=== PATIENT | male | born 1970 | race Caucasian/White ===

== ENCOUNTER 2017-03-31 16:48 | Emergency (ER) | payer BC ==
[2017-03-31 17:15] VITALS: BP 152/97
== END 2017-03-31 18:30 | disposition left against medical advice (07) ==
LOC: ER 16:48
DX: Z53.21 Procedure and treatment not carried out due to patient leaving prior to being seen by health care provider (principal)

== ENCOUNTER 2017-03-31 19:25 | Emergency (ER) | payer BC ==
[2017-03-31 19:39] VITALS: BP 144/100
== END 2017-03-31 21:30 | disposition left against medical advice (07) ==
LOC: ER 19:25
DX: Z53.21 Procedure and treatment not carried out due to patient leaving prior to being seen by health care provider (principal)

== ENCOUNTER 2017-04-01 21:49 | Emergency (ER) | payer BC, OTHER ==
--- NOTE | 2017-04-01 22:24 | ER Document Report ---
ED General - General Chief Complaint: High Blood Pressure Stated Complaint: POSSIBLE LOW SODIUM Time Seen by Provider: 04/01/17 22:05 Notes: Patient is a 46-year-old male who comes emergency department for chief complaint of feeling like it is difficult to focus, he states that his sodium gets very low and he thinks that it is low because he feels worse than usual. He also states he is having difficulty sleeping. He denies any chest pain, headache, focal numbness or weakness, visual changes he states that he was referred to a specialist and they still do not know why his sodium is low. When asked he admits that he drinks alcohol daily and has done so for many years , he has never stopped for more than a day, does not know if he gets withdrawal symptoms. He also smokes and has a history of hypertension, takes losartan and amlodipine, states he took them today. TRAVEL OUTSIDE OF THE [place] IN LAST 30 DAYS: No - Related Data Allergies/Adverse Reactions: No Known Allergies Allergy (Verified 03/31/17 17:14) Past Medical History - General Information source: Patient - Social History Smoking Status: Current Every Day Smoker Frequency of alcohol use: Heavy Drug Abuse: None Lives with: Family Family History: Reviewed & Not Pertinent Patient has suicidal ideation: No Patient has homicidal ideation: No - Past Medical History Cardiac Medical History: Reports: Hx Hypertension Renal/ Medical History: Denies: Hx Peritoneal Dialysis Surgical Hx: Negative - Immunizations Hx Diphtheria, Pertussis, Tetanus Vaccination: Yes Review of Systems - Review of Systems Constitutional: See HPI EENT: No symptoms reported Cardiovascular: No symptoms reported Respiratory: No symptoms reported Gastrointestinal: No symptoms reported Genitourinary: No symptoms reported Male Genitourinary: No symptoms reported Musculoskeletal: No symptoms reported Skin: No symptoms reported Hematologic/Lymphatic: No symptoms reported Neurological/Psychological: See HPI Physical Exam - Vital signs Vitals: Temp Pulse Resp BP Pulse Ox 98.1 F 74 20 167/105 H 97 04/01/17 21:55 04/01/17 21:55 04/01/17 21:55 04/01/17 21:55 04/01/17 21:55 Interpretation: Normal - General General appearance: Appears well, Alert In distress: None - HEENT Head: Normocephalic, Atraumatic Eyes: Normal Conjunctiva: Normal Extraocular movements intact: Yes Eyelashes: Normal Pupils: PERRL Sinus: Normal Nasal: Normal Mouth/Lips: Normal Mucous membranes: Normal Pharynx: Normal Neck: Normal - Respiratory Respiratory status: No respiratory distress Chest status: Nontender Breath sounds: Normal. No: Decreased air movement, Wheezing Chest palpation: Normal - Cardiovascular Rhythm: Regular. No: Tachycardia Heart sounds: Normal auscultation, S1 appreciated, S2 appreciated Murmur: No - Abdominal Inspection: Normal Distension: No distension Bowel sounds: Normal Tenderness: Nontender. No: Tender, Guarding Organomegaly: No organomegaly - Back Back: Normal, Nontender. No: Tender - Extremities General upper extremity: Normal inspection, Nontender, Normal color, Normal ROM , Normal temperature General lower extremity: Normal inspection, Nontender, Normal color, Normal ROM , Normal temperature, Normal weight bearing. 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 Patient drinks daily. Patient has done so for many years. Patient was given IV fluids, on reevaluation he states he feels back to normal. I had a long conversation with both patient and . Discussed need for detox, likelihood of alcohol withdrawal symptoms if he performs is outside of the appropriate setting, discussed referral for this. Patient states that he needs a little bit of time for work to give him the time off to do this, he states that he will drink extra sodium while waiting to do this and try to cut back on alcohol in the meantime. Patient's blood pressure normalized after he became more relaxed. Patient is to continue his current prescriptions. Discussed return precautions in detail. Patient and state understanding and agreement. - Vital Signs Vital signs: Temp Pulse Resp BP Pulse Ox 98.1 F 74 11 L 134/94 H 100 04/01/17 21:55 07/13/17 21:55 04/02/17 00:31 04/02/17 00:31 04/02/17 00:31 - Laboratory Result Diagrams: 04/01/17 22:40 04/01/17 22:40 Laboratory results interpreted by me: 04/01/17 22:40 Sodium 125.7 L Chloride 87 L Total Protein 8.5 H Albumin 5.3 H Discharge - Discharge Clinical Impression: Hyponatremia, Difficulty concentrating, Alcohol abuse Condition: Stable Disposition: HOME, SELF-CARE Additional Instructions: Your sodium is again low, you have been given some sodium chloride, you should increase sodium in your diet. The reason for the low sodium is most likely your heavy alcohol use. Because of your daily heavy use for long time, I recommend following up with the referral at [facility] for detox. Follow-up with your primary care provider additionally for monitoring and management. Return to emergency department for any concerning or worsening symptoms. Forms: Return to Work Referrals: [facility] [Provider Group] - Follow up in 3-5 days
[2017-04-01 22:54] LABS: HEMOGLOBIN 14.3 g/dL (13.5-17.0); HGB HCT DIFFERENCE 0.9; LYMPHOCYTES % (AUTO) 27.9 % (13-45); MEAN CORPUSCULAR HEMOGLOBIN 32.1 pg (27.0-33.4); MEAN CORPUSCULAR HGB CONC 34.1 g/dL (32.0-36.0); MEAN CORPUSCULAR VOLUME 94 fl (80-97); MONOCYTES % (AUTO) 10.3 % (3-13); RED BLOOD COUNT 4.47 10^6/uL (4.35-5.55); RED CELL DISTRIBUTION WIDTH 13.1 % (11.5-14.0); SEGMENTED NEUTROPHILS % (AUTO) 56.4 % (42-78); WHITE BLOOD COUNT 5.8 10^3/uL (4.0-10.5)
[2017-04-01 22:55] LABS: ABSOLUTE BASOPHILS # (AUTO) 0.1 10^3/uL (0.0-0.2); ABSOLUTE EOSINOPHILS # (AUTO) 0.2 10^3/uL (0.0-0.6); ABSOLUTE LYMPHOCYTES (AUTO) 1.6 10^3/uL (0.5-4.7); ABSOLUTE MONOCYTES (AUTO) 0.6 10^3/uL (0.1-1.4); ABSOLUTE NEUT (AUTO) 3.3 10^3/uL (1.7-8.2); BASOPHILS % (AUTO) 1.4 % (0-2)
[2017-04-01 23:06] LABS: ALANINE AMINOTRANSFERASE 25 U/L (21-72); ALBUMIN 5.3 g/dL (3.5-5.0); ALKALINE PHOSPHATASE 75 U/L (38-126); ANION GAP 12 (5-19); ASPARTATE AMINO TRANSFERASE 26 U/L (17-59); BILIRUBIN,DIRECT 0.3 mg/dL (0.0-0.4); BILIRUBIN,TOTAL 0.8 mg/dL (0.2-1.3); BLOOD UREA NITROGEN 12 mg/dL (7-20); CALCIUM 10.2 mg/dL (8.4-10.2); CARBON DIOXIDE 27 mmol/L (22-30); CHLORIDE 87 mmol/L (98-107); CREATININE RESULT 0.67 mg/dL (0.52-1.25); GLUCOSE 103 mg/dL (75-110); POTASSIUM 4.8 mmol/L (3.6-5.0); SODIUM 125.7 mmol/L (137-145); TOTAL PROTEIN 8.5 g/dL (6.3-8.2)
[2017-04-01] MEDS ORDERED: NORMAL SALINE 1000 ML 1,000 ML IV ONE (23:10)
[2017-04-02 00:33] VITALS: BP 134/94
[2017-04-02 01:00] LABS: APPEARANCE,URINE CLEAR; BILIRUBIN,URINE NEGATIVE (NEGATIVE); GLUCOSE, URINE NEGATIVE (NEGATIVE); KETONES,URINE NEGATIVE (NEGATIVE); LEUKOCYTE ESTERASE,URINE NEGATIVE (NEGATIVE); NITRITE,URINE NEGATIVE (NEGATIVE); PROTEIN,URINE NEGATIVE (NEGATIVE); URINE SPECIFIC GRAVITY 1.006; UROBILINOGEN,URINE NEGATIVE mg/dL (<2.0)
[2017-04-02 01:28] LABS: URINE BARBITURATES SCREEN NEGATIVE; URINE METHADONE SCREEN NEGATIVE; URINE OPIATES LOW NEGATIVE; URINE PHENCYCLIDINE SCREEN NEGATIVE
== END 2017-04-02 01:54 | disposition home or self-care (01) ==
LOC: ER 21:49
DX: E87.1 Hypo-osmolality and hyponatremia (principal); R03.0 Elevated blood-pressure reading, without diagnosis of hypertension; F10.10 Alcohol abuse, uncomplicated; F17.200 Nicotine dependence, unspecified, uncomplicated
CPT/HCPCS: 36415; 80053; 80307; 81001; 85025; 96360; 99283

== ENCOUNTER → 2017-04-22 | Outpatient (CLI) | payer OTHER ==
--- NOTE | 2017-04-23 08:16 | RADIOLOGY REPORT (SQ) ---
EXAM DESCRIPTION: MRI HEAD COMBO COMPLETED DATE/TIME: 04/22/2017 7:50 pm REASON FOR STUDY: HEADACHE, CONFUSION R51 HEADACHE COMPARISON: CT brain 04/04/2016 TECHNIQUE: Multiplanar imaging includes noncontrasted T1, T2, FLAIR, diffusion with ADC map and post gadolinium contrast T1 sequences. Images stored on PACS. CONTRAST TYPE AND DOSE: 10 mL Multihance. RENAL FUNCTION: GFR > 60. LIMITATIONS: None. FINDINGS: ANATOMY: Benign right frontal venous angioma of no clinical significance. Normal size pit uitary gland. CSF SPACES: Normal in size and contour. No hemorrhage. CEREBRUM: Sulci and gyri normal in size and contour. Normal white matter signal on FLAIR imaging. No evidence of hemorrhage, mass, or extraaxial fluid collection. No abnormal enhancement post contrast. POSTERIOR FOSSA: No signal alteration. No hemorrhage. No edema, masses, or mass effect. Internal hunter tory canals, cerebellopontine angles, mastoids normal. No enhancing lesions. No abnormal enhancement post contrast. DIFFUSION IMAGING: Negative for acute or subacute infarction. ORBITS: No masses. Globes normal. PARANASAL SINUSES: There is inflammatory change in the paranasal sinuses, with mucous membrane thicke tyron and fluid in the bilateral ethmoid air cells, and mucous membrane thickening in the frontal sinu ses and sphenoid sinus. OTHER: No other significant finding. IMPRESSION: Mild inflammatory changes in the paranasal sinuses. Otherwise unremarkable study. EVIDENCE OF ACUTE STROKE: NO. TECHNICAL DOCUMENTATION: JOB ID: [id number] [employer]- All Rights Reserved
== END ==
LOC: RAD 18:40
PROVIDERS: ATTEND Physician Assistant
DX: R51 Headache (principal); R41.0 Disorientation, unspecified
CPT/HCPCS: 70553; A9577

== ENCOUNTER 2017-04-23 19:12 | Inpatient (IN) | payer OTHER ==
[2017-04-23] MEDS ORDERED: LORAZEPAM INJ 2 MG/1 ML VIAL IV ONE (19:50)
--- NOTE | 2017-04-23 19:54 | ER Document Report ---
ED General - General Chief Complaint: Lab work Stated Complaint: DR SENT FOR POSSIBLE LOW SODIUM Time Seen by Provider: 04/23/17 19:42 Notes: Patient is a 46-year-old male who comes emergency department for chief complaint of low sodium, he states he is contacted by his provider and sent for this reason. He states that he has had frequent low sodium in the past. He states today he has had a headache, difficulty concentrating, and feeling shaky. He admits to daily alcohol use, has withdrawals but denies history of seizure. Only other reported medical history is hypertension (lisinopril and amlodipine). TRAVEL OUTSIDE OF THE [place] IN LAST 30 DAYS: No - Related Data Allergies/Adverse Reactions: No Known Allergies Allergy (Verified 04/23/17 19:31) Home Medications: Current Home Medications Amlodipine Bes/Olmesartan Med [Regino 5-40 mg Tablet] 5 - 40 mg PO DAILY 04/24/17 [History] RX: Buspirone HCl 5 mg PO TID 04/24/17 [History] RX: Levocetirizine Dihydrochloride [Xyzal] 5 mg PO QPM 04/24/17 [History] Past Medical History - General Information source: Patient - Social History Smoking Status: Current Every Day Smoker Frequency of alcohol use: Heavy Drug Abuse: None Lives with: Spouse/Significant other Family History: Reviewed & Not Pertinent Patient has suicidal ideation: No Patient has homicidal ideation: No - Past Medical History Cardiac Medical History: Reports: Hx Hypertension Renal/ Medical History: Denies: Hx Peritoneal Dialysis - Immunizations Hx Diphtheria, Pertussis, Tetanus Vaccination: Yes Review of Systems - Review of Systems Constitutional: See HPI EENT: No symptoms reported Cardiovascular: No symptoms reported Respiratory: No symptoms reported Gastrointestinal: No symptoms reported Genitourinary: No symptoms reported Male Genitourinary: No symptoms reported Musculoskeletal: No symptoms reported Skin: No symptoms reported Hematologic/Lymphatic: No symptoms reported Neurological/Psychological: See HPI Physical Exam - Vital signs Vitals: Temp Pulse Resp BP Pulse Ox 98.5 F 82 16 138/83 H 97 04/23/17 19:26 04/23/17 19:26 04/23/17 19:26 04/23/17 19:26 04/23/17 19:26 Interpretation: Normal - General General appearance: Appears well, Alert In distress: None - HEENT Head: Normocephalic, Atraumatic Eyes: Normal Conjunctiva: Normal Extraocular movements intact: Yes Eyelashes: Normal Pupils: PERRL Nasal: Normal Mouth/Lips: Normal Mucous membranes: Normal Pharynx: Normal Neck: Normal - Respiratory Respiratory status: No respiratory distress Chest status: Nontender Breath sounds: Normal. No: Decreased air movement, Wheezing Chest palpation: Normal - Cardiovascular Rhythm: Regular Heart sounds: Normal auscultation Murmur: No - Abdominal Inspection: Normal Distension: No distension Bowel sounds: Normal Tenderness: Nontender. No: Tender, Guarding Organomegaly: No organomegaly - Back Back: Normal, Nontender - Extremities General upper extremity: Normal inspection, Nontender, Normal color, Normal ROM , Normal temperature General lower extremity: Normal inspection, Nontender, Normal color, Normal ROM , Normal temperature, Normal weight bearing - Neurological Neuro grossly intact: Yes Cognition: Normal Orientation: AAOx4 [place] Coma Scale Eye Opening: Spontaneous [place] Coma Scale Verbal: Oriented [place]taf Coma Scale Motor: Obeys Commands [place] Coma Scale Total: 15 Speech: Normal Cranial nerves: Normal Cerebellar coordination: Normal Motor strength normal: LUE, RUE, LLE, RLE 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 - Psychological Associated symptoms: Normal affect, Normal mood - Skin Skin Temperature: Warm Skin Moisture: Dry Skin Color: Normal Course - Re-evaluation Re-evalutation: At about 1600 patient's sodium level was 120, slightly improved at 123 on recheck. Patient has tremors on examination. He has not had any alcohol since 2 AM. He admits that he gets withdrawals although he has never had a seizure from this. He has not gone without alcohol for 24 hours in years. Starting slow rate of normal saline for sodium replacement. Given dose of Ativan because of his shaking. Patient is not tachycardic, he is neurologically intact and not confused. On reexamination he appears improved. CBC, urine, drug screen unremarkable. Alcohol negative. Discussed with Dr. Hernandez. Concerned about sending patient home with sodium level of 123 with patient needing to go home and drink alcohol in order to not have withdrawals which will lower his sodium again and put him at risk for seizure/DT. Recommends admission. Spoke with Dr. Burnett, government operations consultant for Dr. Haines, patient will be admitted to the hospital. - Vital Signs Vital signs: Temp Pulse Resp BP Pulse Ox 98.2 F 68 16 121/70 97 04/24/17 00:02 04/24/17 02:00 04/24/17 00:02 04/24/17 00:02 04/24/17 00:02 - Laboratory Result Diagrams: 04/23/17 20:15 04/23/17 20:15 Laboratory results interpreted by me: 04/23/17 04/23/17 20:15 20:15 RBC 4.03 L Sodium 123.2 L Chloride 87 L ALT 19 L Discharge - Discharge Clinical Impression: Hyponatremia, Alcohol abuse, Occasional tremors Disposition: ADMITTED INPATIENT Admitting Provider: Zaki Burnett government operations consultant for Dr. Haines Unit Admitted: [facility]
[2017-04-23 20:41] LABS: ABSOLUTE BASOPHILS # (AUTO) 0.1 10^3/uL (0.0-0.2); ABSOLUTE EOSINOPHILS # (AUTO) 0.3 10^3/uL (0.0-0.6); ABSOLUTE LYMPHOCYTES (AUTO) 1.7 10^3/uL (0.5-4.7); ABSOLUTE MONOCYTES (AUTO) 0.4 10^3/uL (0.1-1.4); ABSOLUTE NEUT (AUTO) 4.5 10^3/uL (1.7-8.2); BASOPHILS % (AUTO) 1.2 % (0-2); EOSINOPHILS % (AUTO) 3.8 % (0-6); HEMATOCRIT 37.9 % (37.9-51.0); HEMOGLOBIN 13.5 g/dL (13.5-17.0); HGB HCT DIFFERENCE 2.6; MEAN CORPUSCULAR HEMOGLOBIN 33.4 pg (27.0-33.4); MEAN CORPUSCULAR HGB CONC 35.5 g/dL (32.0-36.0); MEAN CORPUSCULAR VOLUME 94 fl (80-97); MONOCYTES % (AUTO) 6.2 % (3-13); RED BLOOD COUNT 4.03 10^6/uL (4.35-5.55); RED CELL DISTRIBUTION WIDTH 13.1 % (11.5-14.0); SEGMENTED NEUTROPHILS % (AUTO) 64.8 % (42-78); WHITE BLOOD COUNT 6.9 10^3/uL (4.0-10.5)
[2017-04-23 20:56] LABS: ALANINE AMINOTRANSFERASE 19 U/L (21-72); ALBUMIN 4.7 g/dL (3.5-5.0); ALKALINE PHOSPHATASE 68 U/L (38-126); ANION GAP 11 (5-19); ASPARTATE AMINO TRANSFERASE 22 U/L (17-59); BILIRUBIN,DIRECT 0.3 mg/dL (0.0-0.4); BILIRUBIN,TOTAL 0.7 mg/dL (0.2-1.3); BLOOD UREA NITROGEN 11 mg/dL (7-20); CALCIUM 9.5 mg/dL (8.4-10.2); CARBON DIOXIDE 25 mmol/L (22-30); CHLORIDE 87 mmol/L (98-107); CREATININE RESULT 0.62 mg/dL (0.52-1.25); GLUCOSE 86 mg/dL (75-110); POTASSIUM 4.6 mmol/L (3.6-5.0); SODIUM 123.2 mmol/L (137-145); TOTAL PROTEIN 7.4 g/dL (6.3-8.2)
[2017-04-23 21:01] LABS: ALCOHOL < 10 mg/dL (NONE DETECTED)
[2017-04-23] MEDS ORDERED: NICOTINE 14 MG/24 HR PATCH.TD24 TD ONE (21:48)
[2017-04-23] MEDS: NORMAL SALINE 1000 ML 1,000 ML IV PRN (22:04)
[2017-04-23 22:16] LABS: APPEARANCE,URINE CLEAR; BILIRUBIN,URINE NEGATIVE (NEGATIVE); GLUCOSE, URINE NEGATIVE (NEGATIVE); KETONES,URINE NEGATIVE (NEGATIVE); LEUKOCYTE ESTERASE,URINE NEGATIVE (NEGATIVE); NITRITE,URINE NEGATIVE (NEGATIVE); PROTEIN,URINE NEGATIVE (NEGATIVE); URINE SPECIFIC GRAVITY 1.004; UROBILINOGEN,URINE NEGATIVE mg/dL (<2.0)
[2017-04-23 22:29] LABS: URINE BARBITURATES SCREEN NEGATIVE; URINE METHADONE SCREEN NEGATIVE; URINE OPIATES LOW NEGATIVE; URINE PHENCYCLIDINE SCREEN NEGATIVE
[2017-04-24] MEDS ORDERED: LORAZEPAM INJ 2 MG/1 ML VIAL IV PRN (00:58)
[2017-04-24] MEDS ORDERED: NICOTINE 14 MG/24 HR PATCH.TD24 TD PRN (00:59)
[2017-04-24] MEDS: NORMAL SALINE 1000 ML 1,000 ML IV PRN (01:25)
[2017-04-24] MEDS ORDERED: BUSPIRONE HCL 10 MG TABLET PO ONE (01:30)
[2017-04-24] MEDS ORDERED: CETIRIZINE 10 MG TABLET PO ONE (01:30)
[2017-04-24] MEDS ORDERED: CETIRIZINE 5 MG TABLET PO ONE (01:30)
[2017-04-24 05:04] LABS: ANION GAP 8 (5-19); BLOOD UREA NITROGEN 14 mg/dL (7-20); CALCIUM 9.1 mg/dL (8.4-10.2); CARBON DIOXIDE 22 mmol/L (22-30); CHLORIDE 99 mmol/L (98-107); CREATININE RESULT 0.72 mg/dL (0.52-1.25); GLUCOSE 92 mg/dL (75-110); POTASSIUM 4.9 mmol/L (3.6-5.0); SODIUM 128.7 mmol/L (137-145)
[2017-04-24] MEDS: BUSPIRONE HCL 10 MG TABLET PO SCH ×2 (09:13→13:38)
[2017-04-24] MEDS ORDERED: NICOTINE 21 MG/24 HR PATCH.TD24 TD PRN (09:47)
[2017-04-24 11:35] VITALS: BP 150/94
--- NOTE | 2017-04-24 15:50 | PDOC H&P ---
History of Present Illness Admission Date/PCP: 04/24/17 00:50 DELROY VYAS MD History of Present Illness: VARGHESE CLARK JR is a 46 year old male, Patient was admitted because of hyponatremia. I received a call from the laboratory about this patient, he had routine outpatient blood work, the serum sodium was 120, the laboratory staff gave me a call to advise me of the serum sodium results, I called the patient and advised him to go to the emergency room for evaluation. He went to the emergency room for evaluation the blood work that was done revealed serial sodium, 123, patient has a history of habitual alcohol consumption, he is also a heavy cigarette smoker he smoked up to 3 packs a day of cigarette, the emergency room physician wants patient admitted for observation because of the hyponatremia and the fact that he drinks alcohol habitually. When I saw patient on the floor he told me that he was diagnosed with syndrome of inappropriate anti-diuretic hormone secretion so it seems to me that he has chronic hyponatremia most likely related to alcohol consumption and tobacco use. Past Medical History Cardiac Medical History: Reports: Hypertension Psychiatric Medical History: Reports: Depression Social History Lives with: Spouse/Significant other Smoking Status: Current Every Day Smoker Cigarettes Packs Per Day: 1 Number of Years Smokin Frequency of Alcohol Use: Heavy Hx Recreational Drug Use: No Drugs: None Hx Prescription Drug Abuse: No Family History Family History: Reviewed & Not Pertinent Parental Family History Reviewed: Yes Children Family History Reviewed: Yes Sibling(s) Family History Reviewed.: Yes Medication/Allergy Home Medications: Amlodipine Bes/Olmesartan Med [Regino 5-40 mg Tablet] 1 tab PO DAILY 04/24/17 Buspirone HCl 5 mg PO Q8 04/24/17 Ciprofloxacin HCl [Cipro 500 mg Tablet] 500 mg PO Q12 #20 tablet 04/24/17 Levocetirizine Dihydrochloride [Xyzal] 5 mg PO QPM 04/24/17 Allergies/Adverse Reactions: No Known Allergies Allergy (Verified 04/23/17 19:31) Review of Systems Constitutional: ABSENT: chills, fever(s), headache(s), weight gain, weight loss Eyes: ABSENT: visual disturbances Ears: ABSENT: hearing changes Cardiovascular: ABSENT: chest pain, dyspnea on exertion, edema, orthropnea, palpitations Respiratory: ABSENT: cough, hemoptysis Gastrointestinal: ABSENT: abdominal pain, constipation, diarrhea, hematemesis, hematochezia, nausea, vomiting Genitourinary: ABSENT: dysuria, hematuria Musculoskeletal: ABSENT: joint swelling Integumentary: ABSENT: rash, wounds Neurological: ABSENT: abnormal gait, abnormal speech, confusion, dizziness, focal weakness, syncope Psychiatric: ABSENT: anxiety, depression, homidical ideation, suicidal ideation Endocrine: ABSENT: cold intolerance, heat intolerance, menstrual abnormalities, polydipsia, polyuria Hematologic/Lymphatic: ABSENT: easy bleeding, easy bruising, lymphadenopathy Physical Exam Vital Signs: Temp Pulse Resp BP Pulse Ox 98.1 F 56 L 19 150/94 H 99 04/24/17 14:06 04/24/17 14:06 04/24/17 14:06 04/24/17 14:06 04/24/17 14:06 Intake & Output 04/23/17 04/24/17 04/25/17 06:59 06:59 06:59 Intake Total 399 720 Balance 399 720 General appearance: PRESENT: no acute distress, well-developed, well-nourished Head exam: PRESENT: atraumatic, normocephalic Eye exam: PRESENT: conjunctiva pink, EOMI, PERRLA. ABSENT: scleral icterus Ear exam: PRESENT: normal external ear exam Mouth exam: PRESENT: moist, tongue midline Neck exam: PRESENT: full ROM Respiratory exam: PRESENT: clear to auscultation anais Cardiovascular exam: PRESENT: RRR, +S1, +S2 Vascular exam: PRESENT: normal capillary refill GI/Abdominal exam: PRESENT: normal bowel sounds, soft Rectal exam: PRESENT: deferred Neurological exam: PRESENT: alert, awake, oriented to person, oriented to place , oriented to time, oriented to situation, CN II-XII grossly intact Psychiatric exam: PRESENT: appropriate affect Skin exam: PRESENT: dry, intact, warm Results Laboratory Results: 04/24/17 04:29 04/24/17 04:29 Sodium 128.7 L Potassium 4.9 Chloride 99 Carbon Dioxide 22 Anion Gap 8 BUN 14 Creatinine 0.72 Est GFR ( Amer) > 60 Est GFR (Non-Af Amer) > 60 Glucose 92 Calcium 9.1 Assessment & Plan - Diagnosis (1) Hyponatremia Is this a current diagnosis for this admission?: YesPlan: Patient has history of chronic hyponatremia, syndrome of inappropriate anti- diuretic hormone secretion, type he is asymptomatic I had a long discussion with him today about SIADH, the main stay of treatment for this condition is fluid restriction, he needs to restrict fluid to about 1500 cc of fluid in 24 hours. Most likely the risk factor for SIADH in this patient is the habitual alcohol use he was advised to stop drinking alcohol and stop Smoking. When he came in last night he was treated with IV fluid isotonic normal saline, the serum sodium from the recent lab work is 128. I do not see any indication for inpatient care at this time he was admitted for observation, he be discharged home. (2) Phlebitis Is this a current diagnosis for this admission?: YesPlan: He has phlebitis on the right forearm at the site where he had contrast injected for MRI studies last week (3) Alcohol abuse Is this a current diagnosis for this admission?: Yes
--- NOTE | 2017-04-24 15:54 | PDOC DISCHARGE SUMMARY ---
General - Admit/Disc Date/PCP Admission Date/Primary Care Provider: 04/24/17 00:50 DELROY VYAS MD Discharge Date: 04/24/17 - Discharge Diagnosis (1) Hyponatremia Is this a current diagnosis for this admission?: Yes (2) Phlebitis Is this a current diagnosis for this admission?: Yes (3) Alcohol abuse Is this a current diagnosis for this admission?: Yes (4) SIADH (syndrome of inappropriate ADH production) Is this a current diagnosis for this admission?: Yes - Additional Information Discharge Diet: Other (Comments) Home Medications: Amlodipine Bes/Olmesartan Med [Regino 5-40 mg Tablet] 1 tab PO DAILY 04/24/17 Buspirone HCl 5 mg PO Q8 04/24/17 Ciprofloxacin HCl [Cipro 500 mg Tablet] 500 mg PO Q12 #20 tablet 04/24/17 Levocetirizine Dihydrochloride [Xyzal] 5 mg PO QPM 04/24/17 History of Present Illness History of Present Illness: VARGHESE CLARK JR is a 46 year old male, Patient was admitted because of hyponatremia. I received a call from the laboratory about this patient, he had routine outpatient blood work, the serum sodium was 120, the laboratory staff gave me a call to advise me of the serum sodium results, I called the patient and advised him to go to the emergency room for evaluation. He went to the emergency room for evaluation the blood work that was done revealed serial sodium, 123, patient has a history of habitual alcohol consumption, he is also a heavy cigarette smoker he smoked up to 3 packs a day of cigarette, the emergency room physician wants patient admitted for observation because of the hyponatremia and the fact that he drinks alcohol habitually. When I saw patient on the floor he told me that he was diagnosed with syndrome of inappropriate anti-diuretic hormone secretion so it seems to me that he has chronic hyponatremia most likely related to alcohol consumption and tobacco use. Hospital Course Hospital Course: Patient was admitted last night for the management of severe hyponatremia, phlebitis of right upper extremities, he was treated with IV fluid, isotonic normal saline, on admission the serum sodium was 123, the serum sodium from today's lab is 128. The phlebitis was treated with p.o. Cipro Physical Exam Vital Signs: Temp Pulse Resp BP Pulse Ox 98.1 F 56 L 19 150/94 H 99 04/24/17 14:06 04/24/17 14:06 04/24/17 14:06 04/24/17 14:06 04/24/17 14:06 Intake & Output 04/23/17 04/24/17 04/25/17 06:59 06:59 06:59 Intake Total 399 720 Balance 399 720 General appearance: PRESENT: no acute distress, well-developed, well-nourished Head exam: PRESENT: atraumatic, normocephalic Eye exam: PRESENT: conjunctiva pink, EOMI, PERRLA Ear exam: PRESENT: normal external ear exam Mouth exam: PRESENT: moist, tongue midline Neck exam: PRESENT: full ROM Respiratory exam: PRESENT: clear to auscultation anais Cardiovascular exam: PRESENT: RRR, +S1, +S2 Vascular exam: PRESENT: normal capillary refill GI/Abdominal exam: PRESENT: normal bowel sounds, soft Rectal exam: PRESENT: deferred Extremities exam: PRESENT: other - Phlebitis right upper extremity Neurological exam: PRESENT: alert, awake, oriented to person, oriented to place , oriented to time, oriented to situation, CN II-XII grossly intact Psychiatric exam: PRESENT: appropriate affect, normal mood Skin exam: PRESENT: dry, intact, warm Results Laboratory Results: 04/24/17 04:29 04/24/17 04:29 Sodium 128.7 L Potassium 4.9 Chloride 99 Carbon Dioxide 22 Anion Gap 8 BUN 14 Creatinine 0.72 Est GFR ( Amer) > 60 Est GFR (Non-Af Amer) > 60 Glucose 92 Calcium 9.1
[2017-04-24] MEDS ORDERED: CIPROFLOXACIN HCL 500 MG TABLET PO SCH (18:00)
[2017-04-24] MEDS ORDERED: CETIRIZINE 5 MG TABLET PO SCH (22:00)
== END 2017-04-24 14:39 | disposition home or self-care (01) | DRG 644 ==
LOC: ER 19:12 → EH 21:59 → UNDOADMIN 21:59 → EH 04-24 00:01 → 3W 04-24 00:01 → EH 04-24 00:50 → 3W 04-24 00:50
PROVIDERS: ADMIT Internal Medicine; ATTEND Internal Medicine
DX: E22.2 Syndrome of inappropriate secretion of antidiuretic hormone (principal); T80.1XXA Vascular complications following infusion, transfusion and therapeutic injection, initial encounter; I10 Essential (primary) hypertension; F32.9 Major depressive disorder, single episode, unspecified; I80.8 Phlebitis and thrombophlebitis of other sites; F17.210 Nicotine dependence, cigarettes, uncomplicated; F10.10 Alcohol abuse, uncomplicated; Z79.899 Other long term (current) drug therapy
CPT/HCPCS: 36415; 80048; 80053; 80307; 81001; 85025; 96374; 99285; J2060; J7030

== ENCOUNTER → 2017-04-23 | Outpatient (CLI) | payer OTHER ==
[2017-04-23 17:30] LABS: ANION GAP 15 (5-19); BLOOD UREA NITROGEN 7 mg/dL (7-20); CALCIUM 9.2 mg/dL (8.4-10.2); CARBON DIOXIDE 17 mmol/L (22-30); CHLORIDE 89 mmol/L (98-107); CREATININE RESULT 0.51 mg/dL (0.52-1.25); GLUCOSE 131 mg/dL (75-110); POTASSIUM 4.5 mmol/L (3.6-5.0)
[2017-04-23 17:49] LABS: SODIUM 120.6 mmol/L (137-145)
== END ==
LOC: OD 16:16
PROVIDERS: ATTEND Physician Assistant
DX: E22.2 Syndrome of inappropriate secretion of antidiuretic hormone (principal)
CPT/HCPCS: 36415; 80048

== ENCOUNTER → 2017-05-07 | Outpatient (CLI) | payer OTHER ==
[2017-05-07 14:39] LABS: APPEARANCE,URINE CLEAR; BILIRUBIN,URINE NEGATIVE (NEGATIVE); GLUCOSE, URINE NEGATIVE (NEGATIVE); KETONES,URINE NEGATIVE (NEGATIVE); LEUKOCYTE ESTERASE,URINE NEGATIVE (NEGATIVE); NITRITE,URINE NEGATIVE (NEGATIVE); PROTEIN,URINE NEGATIVE (NEGATIVE); URINE SPECIFIC GRAVITY 1.008; UROBILINOGEN,URINE NEGATIVE mg/dL (<2.0)
[2017-05-07 14:51] LABS: ALBUMIN 4.6 g/dL (3.5-5.0); ANION GAP 11 (5-19); BLOOD UREA NITROGEN 10 mg/dL (7-20); CALCIUM 9.3 mg/dL (8.4-10.2); CARBON DIOXIDE 21 mmol/L (22-30); CHLORIDE 91 mmol/L (98-107); CREATININE RESULT 0.65 mg/dL (0.52-1.25); GLUCOSE 138 mg/dL (75-110); PHOSPHORUS 4.2 mg/dL (2.5-4.5); POTASSIUM 4.7 mmol/L (3.6-5.0); SODIUM 123.4 mmol/L (137-145); URIC ACID 3.9 mg/dL (3.5-8.5)
[2017-05-07 15:06] LABS: URINE CREATININE 51.2 mg/dL (22-328)
== END ==
LOC: OD 12:59
PROVIDERS: ATTEND Internal Medicine Nephrology
DX: E87.1 Hypo-osmolality and hyponatremia (principal)
CPT/HCPCS: 36415; 80069; 81001; 82570; 83935; 84300; 84550

== ENCOUNTER 2018-05-16 14:38 | Emergency (ER) | payer OTHER ==
--- NOTE | 2018-05-16 16:28 | ER Document Report ---
ED Medical Screen (RME) - General Chief Complaint: Dizziness Stated Complaint: DIZZINESS Time Seen by Provider: 05/16/18 16:19 Notes: 47-year-old male to emergency department chief complaint of dizziness and shaking. History of hyponatremia. Heavy drinker. Was admitted to the hospital at [facility] in [place] last year for the same. Denies any trials at alcohol cessation. Also takes medication for anxiety but has been taking it. States that he is shaking so bad he is having a hard time doing his job. Thinks it may be his sodium levels could be low I have greeted and performed a rapid initial assessment of this patient. A comprehensive ED assessment and evaluation of the patient, analysis of test results and completion of the medical decision making process will be conducted by additional ED providers. TRAVEL OUTSIDE OF THE [place] IN LAST 30 DAYS: No - Related Data Allergies/Adverse Reactions: No Known Allergies Allergy (Verified 05/16/18 14:38) Past Medical History - Past Medical History Cardiac Medical History: Reports: Hx Hypertension Renal/ Medical History: Denies: Hx Peritoneal Dialysis Psychiatric Medical History: Reports: Hx Depression - Immunizations Hx Diphtheria, Pertussis, Tetanus Vaccination: Yes Review of Systems - Review of Systems Notes: Review of systems positive for the for the following: Shaking, dizzy Physical Exam - Vital signs Vitals: Temp Pulse Resp BP Pulse Ox 98.8 F 67 18 158/86 H 97 05/16/18 14:42 05/16/18 14:42 05/16/18 14:42 05/16/18 14:42 05/16/18 14:42 Course - Vital Signs Vital signs: Temp Pulse Resp BP Pulse Ox 98.8 F 67 18 158/86 H 97 05/16/18 14:42 05/16/18 14:42 05/16/18 14:42 05/16/18 14:42 05/16/18 14:42 Doctor's Discharge - Discharge Referrals: DELROY VYAS MD [Primary Care Provider] - Follow up as needed
[2018-05-16 17:14] LABS: ABSOLUTE BASOPHILS # (AUTO) 0.1 10^3/uL (0.0-0.2); ABSOLUTE LYMPHOCYTES (AUTO) 1.3 10^3/uL (0.5-4.7); ABSOLUTE MONOCYTES (AUTO) 0.5 10^3/uL (0.1-1.4); ABSOLUTE NEUT (AUTO) 4.3 10^3/uL (1.7-8.2); BASOPHILS % (AUTO) 1.3 % (0-2); EOSINOPHILS % (AUTO) 0.3 % (0-6); HEMOGLOBIN 13.2 g/dL (13.5-17.0); LYMPHOCYTES % (AUTO) 20.4 % (13-45); MEAN CORPUSCULAR HEMOGLOBIN 33.9 pg (27.0-33.4); MEAN CORPUSCULAR HGB CONC 35.6 g/dL (32.0-36.0); MEAN CORPUSCULAR VOLUME 95 fl (80-97); MONOCYTES % (AUTO) 8.5 % (3-13); PLATELET COUNT 410 10^3/uL (150-450); RED BLOOD COUNT 3.89 10^6/uL (4.35-5.55); RED CELL DISTRIBUTION WIDTH 13.4 % (11.5-14.0); SEGMENTED NEUTROPHILS % (AUTO) 69.5 % (42-78); TOTAL CELLS COUNTED % (AUTO) 100 %; WHITE BLOOD COUNT 6.2 10^3/uL (4.0-10.5)
[2018-05-16 17:18] LABS: APPEARANCE,URINE CLEAR; BILIRUBIN,URINE NEGATIVE (NEGATIVE); COLOR,URINE YELLOW; GLUCOSE, URINE NEGATIVE (NEGATIVE); KETONES,URINE TRACE mg/dL (NEGATIVE); LEUKOCYTE ESTERASE,URINE NEGATIVE (NEGATIVE); NITRITE,URINE NEGATIVE (NEGATIVE); PROTEIN,URINE NEGATIVE (NEGATIVE); URINE SPECIFIC GRAVITY 1.016
[2018-05-16 17:32] LABS: URINE AMPHETAMINES SCREEN NEGATIVE; URINE BARBITURATES SCREEN NEGATIVE; URINE BENZODIAZEPINES SCREEN NEGATIVE; URINE COCAINE SCREEN NEGATIVE; URINE MARIJUANA (THC) SCREEN NEGATIVE; URINE METHADONE SCREEN NEGATIVE; URINE PHENCYCLIDINE SCREEN NEGATIVE
[2018-05-16 17:36] LABS: ALANINE AMINOTRANSFERASE 24 U/L (21-72); ALBUMIN 5.2 g/dL (3.5-5.0); ALCOHOL < 10 mg/dL (NONE DETECTED); ALKALINE PHOSPHATASE 61 U/L (38-126); ANION GAP 13 (5-19); ASPARTATE AMINO TRANSFERASE 26 U/L (17-59); BILIRUBIN,DIRECT 0.3 mg/dL (0.0-0.4); BLOOD UREA NITROGEN 12 mg/dL (7-20); CARBON DIOXIDE 24 mmol/L (22-30); CHLORIDE 89 mmol/L (98-107); GLUCOSE 94 mg/dL (75-110); POTASSIUM 4.7 mmol/L (3.6-5.0); SODIUM 126.2 mmol/L (137-145); TOTAL PROTEIN 8.1 g/dL (6.3-8.2)
[2018-05-16] MEDS ORDERED: NORMAL SALINE 1000 ML 1,000 ML IV ONE ×2 (17:58→18:58)
[2018-05-16 20:18] LABS: ANION GAP 10 (5-19); BLOOD UREA NITROGEN 10 mg/dL (7-20); CALCIUM 8.3 mg/dL (8.4-10.2); CARBON DIOXIDE 21 mmol/L (22-30); CHLORIDE 95 mmol/L (98-107); GLUCOSE 102 mg/dL (75-110); POTASSIUM 4.1 mmol/L (3.6-5.0); SODIUM 126.1 mmol/L (137-145)
--- NOTE | 2018-05-16 21:24 | ER Document Report ---
ED General - General Chief Complaint: Dizziness Stated Complaint: DIZZINESS Time Seen by Provider: 05/16/18 16:19 TRAVEL OUTSIDE OF THE [place] IN LAST 30 DAYS: No - HPI Patient complains to provider of: Dizziness Notes: Patient with a history of SIADH. Alcohol abuse tobacco abuse coming in for dizziness. Patient states similar symptoms when his sodium has been low in the past. Patient denies any fever chills nausea vomiting diarrhea. Patient was to be no distress upon my evaluation. - Related Data Allergies/Adverse Reactions: No Known Allergies Allergy (Verified 05/16/18 14:38) Past Medical History - Social History Smoking Status: Current Every Day Smoker Family History: Reviewed & Not Pertinent Patient has suicidal ideation: No Patient has homicidal ideation: No - Past Medical History Cardiac Medical History: Reports: Hx Hypertension Renal/ Medical History: Denies: Hx Peritoneal Dialysis Psychiatric Medical History: Reports: Hx Depression - Immunizations Hx Diphtheria, Pertussis, Tetanus Vaccination: Yes Review of Systems - Review of Systems Constitutional: Other - Dizziness EENT: No symptoms reported Cardiovascular: No symptoms reported Respiratory: No symptoms reported Gastrointestinal: No symptoms reported Genitourinary: No symptoms reported Male Genitourinary: No symptoms reported Musculoskeletal: No symptoms reported Skin: No symptoms reported Hematologic/Lymphatic: No symptoms reported Neurological/Psychological: No symptoms reported -: Yes All other systems reviewed and negative Physical Exam - Vital signs Vitals: Temp Pulse Resp BP Pulse Ox 98.8 F 67 18 158/86 H 97 05/16/18 14:42 05/16/18 14:42 05/16/18 14:42 05/16/18 14:42 05/16/18 14:42 Interpretation: Normal - General General appearance: Appears well, Alert - HEENT Head: Normocephalic, Atraumatic Eyes: Normal Pupils: PERRL - Respiratory Respiratory status: No respiratory distress Chest status: Nontender Breath sounds: Normal Chest palpation: Normal - Cardiovascular Rhythm: Regular Heart sounds: Normal auscultation Murmur: No - Abdominal Inspection: Normal Distension: No distension Bowel sounds: Normal Tenderness: Nontender Organomegaly: No organomegaly - Back Back: Normal, Nontender - Extremities General upper extremity: Normal inspection, Nontender, Normal color, Normal ROM , Normal temperature General lower extremity: Normal inspection, Nontender, Normal color, Normal ROM , Normal temperature, Normal weight bearing. No: Horace's sign - Neurological Neuro grossly intact: Yes Cognition: Normal Orientation: AAOx4 Altaf Coma Scale Eye Opening: Spontaneous Sprakers Coma Scale Verbal: Oriented Altaf Coma Scale Motor: Obeys Commands Sprakers Coma Scale Total: 15 Speech: Normal Motor strength normal: LUE, RUE, LLE, RLE Sensory: Normal - Psychological Associated symptoms: Normal affect, Normal mood - Skin Skin Temperature: Warm Skin Moisture: Dry Skin Color: Normal Course - Re-evaluation Re-evalutation: 05/16/18 23:51 Discussed results with patient's PCP Dr. Vyas. Today's laboratory values are consistent with the patient normally runs at patient's but to be taken salt tablets and restricting his fluids recommends a fluid restriction at this time of 1200 cc otherwise patient to follow-up in his office on will repeat repeat laboratory studies. Patient agrees this plan and will be discharged home. Ambulate at dc without difficulty. - Vital Signs Vital signs: Temp Pulse Resp BP Pulse Ox 98.5 F 63 16 134/88 H 97 05/16/18 21:41 05/16/18 21:41 05/16/18 21:41 05/16/18 21:41 05/16/18 21:41 - Laboratory Result Diagrams: 05/16/18 16:59 05/16/18 19:54 Laboratory results interpreted by me: 05/16/18 05/16/18 05/16/18 16:59 16:59 16:59 RBC 3.89 L Hgb 13.2 L Hct 37.0 L MCH 33.9 H Sodium 126.2 L Chloride 89 L Carbon Dioxide Creatinine Calcium Magnesium 2.5 H Albumin 5.2 H Urine Ketones TRACE H Urine Urobilinogen 4.0 H 05/16/18 19:54 RBC Hgb Hct MCH Sodium 126.1 L Chloride 95 L Carbon Dioxide 21 L Creatinine 0.50 L Calcium 8.3 L Magnesium Albumin Urine Ketones Urine Urobilinogen Discharge - Discharge Clinical Impression: Hyponatremia, SIADH (syndrome of inappropriate ADH production) Condition: Good Disposition: HOME, SELF-CARE Instructions: Hyponatremia ([facility]) Additional Instructions: Her studies today showed a sodium of 126. I discussed her results with your primary care physician Dr. Vyas who states that this is near baseline. Recommends discharge home to follow-up in his office on . Please restrict yourself to only 1200ml of fluid a day. Please make sure that you are taking your salt tablets as previously recommended by her defective cigarette slitter. Return to the ER for any concerning issues. Forms: Return to Work Referrals: DELROY VYAS MD [Primary Care Provider] - Follow up as needed
[2018-05-16 21:44] VITALS: BP 134/88
== END 2018-05-16 21:45 | disposition home or self-care (01) ==
LOC: ER 14:38
DX: E87.1 Hypo-osmolality and hyponatremia (principal); E22.2 Syndrome of inappropriate secretion of antidiuretic hormone; R42 Dizziness and giddiness; F17.200 Nicotine dependence, unspecified, uncomplicated; I10 Essential (primary) hypertension
CPT/HCPCS: 99284; 96360; 96361; 36415; 80307 ×2; 83735; 85025; 80048; 80053; 81001; J7030

== ENCOUNTER 2018-09-10 10:33 | Inpatient (IN) | payer BC, OTHER ==
--- NOTE | 2018-09-10 10:47 | ER Document Report ---
ED Medical Screen (RME) - General Chief Complaint: Altered Mental Status Stated Complaint: CONFUSION Time Seen by Provider: 09/10/18 10:45 Mode of Arrival: Ambulatory Information source: Patient, Relative TRAVEL OUTSIDE OF THE [place] IN LAST 30 DAYS: No - HPI Patient complains to provider of: confusion Onset: Other - mother states pt. has not been acting right for the past few days -- is confused. Was sent home from work today due to abnormal behavior - Related Data Allergies/Adverse Reactions: No Known Allergies Allergy (Verified 09/10/18 10:36) Past Medical History - Past Medical History Cardiac Medical History: Reports: Hx Hypertension Renal/ Medical History: Denies: Hx Peritoneal Dialysis Psychiatric Medical History: Reports: Hx Depression - Immunizations Hx Diphtheria, Pertussis, Tetanus Vaccination: Yes Physical Exam - Vital signs Vitals: Temp Pulse Resp BP Pulse Ox 97.7 F 65 20 113/71 98 09/10/18 10:39 09/10/18 10:39 09/10/18 10:39 09/10/18 10:39 09/10/18 10:39 Course - Vital Signs Vital signs: Temp Pulse Resp BP Pulse Ox 97.7 F 65 20 113/71 98 09/10/18 10:39 09/10/18 10:39 09/10/18 10:39 09/10/18 10:39 09/10/18 10:39 Doctor's Discharge - Discharge Referrals: DELROY VYAS MD [Primary Care Provider] - Follow up as needed
--- NOTE | 2018-09-10 11:06 | RADIOLOGY REPORT (SQ) ---
EXAM DESCRIPTION: CT HEAD WITHOUT COMPLETED DATE/TIME: 09/10/2018 10:55 am REASON FOR STUDY: confusion COMPARISON: 04/04/2016 TECHNIQUE: Axial images acquired through the brain without intravenous contrast. Images reviewed wi th bone, brain and subdural windows. Additional sagittal and coronal reconstructions were generated. Images stored on PACS. All CT scanners at this facility use dose modulation, iterative reconstruction, and/or weight based d osing when appropriate to reduce radiation dose to as low as reasonably achievable (ALARA). [facility]: Dose Right [facility]: CareDose [facility]: Dose Right [facility]: Teradose 4D [facility]: Smart Oatmeal RADIATION DOSE: CT Rad equipment meets quality standard of care and radiation dose reduction techniq ues were employed. CTDIvol: 53.2 mGy. DLP: 964 mGy-cm. mGy. LIMITATIONS: None. FINDINGS: VENTRICLES: Normal size and contour. CEREBRUM: No masses. No hemorrhage. No midline shift. No evidence for acute infarction. Normal gra y/white matter differentiation. No areas of low density in the white matter. CEREBELLUM: No masses. No hemorrhage. No alteration of density. No evidence for acute infarction. EXTRAAXIAL SPACES: No fluid collections. No masses. ORBITS AND GLOBE: No intra- or extraconal masses. Normal contour of globe without masses. CALVARIUM: No fracture. PARANASAL SINUSES: No fluid or mucosal thickening. SOFT TISSUES: No mass or hematoma. OTHER: No other significant finding. IMPRESSION: NORMAL BRAIN CT WITHOUT CONTRAST. EVIDENCE OF ACUTE STROKE: NO. COMMENT: Quality ID # [id number]: Final reports with documentation of one or more dose reduction techniques (e.g., Automated exposure control, adjustment of the mA and/or kV according to patient size, use of iterative reconstruction technique) TECHNICAL DOCUMENTATION: JOB ID: [id number] [employer]- All Rights Reserved Reading location - IP/workstation name: [email or web address]
[2018-09-10] MEDS ORDERED: CEFTRIAXONE 2 GM/D5W RTU 2 GM/50 ML RTUPB IV ONE (11:09)
--- NOTE | 2018-09-10 11:10 | ER Document Report ---
ED General - General Chief Complaint: Altered Mental Status Stated Complaint: CONFUSION Time Seen by Provider: 09/10/18 10:45 Mode of Arrival: Ambulatory Information source: Patient, Parent, H Records Cannot obtain history due to: Altered mental status TRAVEL OUTSIDE OF THE [place] IN LAST 30 DAYS: No - HPI Patient complains to provider of: Nothing Onset: Other - 48-year-old man with a history of SIADH who is had recurrent presentations to the emergency department for confusion previously managed by Dr. Haines utilizing salt tablets. His mother who is with him and lives next door notes that today he has been profoundly confused and comparison to his previous not knowing what time it is, not knowing where he is at not knowing what he is doing which is been worsening since yesterday afternoon. He currently denies any complaints, denies any chest pain shortness of breath or other symptoms. - Related Data Allergies/Adverse Reactions: No Known Allergies Allergy (Verified 09/10/18 10:36) Past Medical History - General Information source: Patient, Relative - Social History Smoking Status: Current Every Day Smoker Chew tobacco use (# tins/day): No Frequency of alcohol use: Occasional Family History: Reviewed & Not Pertinent Patient has suicidal ideation: No Patient has homicidal ideation: No - Past Medical History Cardiac Medical History: Reports: Hx Hypertension Renal/ Medical History: Denies: Hx Peritoneal Dialysis Psychiatric Medical History: Reports: Hx Depression - Immunizations Hx Diphtheria, Pertussis, Tetanus Vaccination: Yes Review of Systems - Review of Systems -: Yes All other systems reviewed and negative Physical Exam - Vital signs Vitals: Temp Pulse Resp BP Pulse Ox 97.7 F 65 20 113/71 98 09/10/18 10:39 09/10/18 10:39 09/10/18 10:39 09/10/18 10:39 09/10/18 10:39 Interpretation: Normal - General General appearance: Appears well, Alert - HEENT Head: Normocephalic, Atraumatic Eyes: Normal Pupils: PERRL - Respiratory Respiratory status: No respiratory distress Chest status: Nontender Breath sounds: Normal Chest palpation: Normal - Cardiovascular Rhythm: Regular Heart sounds: Normal auscultation Murmur: No - Abdominal Inspection: Normal Distension: No distension Bowel sounds: Normal Tenderness: Nontender Organomegaly: No organomegaly - Back Back: Normal, Nontender - Extremities General upper extremity: Normal inspection, Nontender, Normal color, Normal ROM, Normal temperature General lower extremity: Normal inspection, Nontender, Normal color, Normal ROM, Normal temperature, Normal weight bearing. No: Horace's sign - Neurological Neuro grossly intact: Yes Cognition: Confused, Short term memory loss Orientation: Disoriented to place, Disoriented to events Altaf Coma Scale Eye Opening: Spontaneous Altaf Coma Scale Verbal: Confused Drummond Coma Scale Motor: Obeys Commands Drummond Coma Scale Total: 14 Speech: Normal Motor strength normal: LUE, RUE, LLE, RLE Sensory: Normal - Psychological Associated symptoms: Agitated, Irritable, Labile - Skin Skin Temperature: Warm Skin Moisture: Dry Skin Color: Normal Course - Re-evaluation Re-evalutation: 09/10/18 17:15 This 48-year-old man presents for confusion and a history of SIADH. His mother notes he has been more confused over the last 2 days. Examination this gentleman has global cognitive slowing. He is confused to events, place, time, he refuses to attempt to partake and sim ple questioning. States that he is going to leave the hospital. In speaking to he and his mother it is apparent that this gentleman has been remarkably confused at this time. We will obtain broad labs through triage this gentleman had a CT of the head obtained as well which is normal at this time, his sodium is 125. He has been unable to urinate in the emergency department. His hyponatremia is likely major contributor his confusion, previously he had been on a fluid restriction as well as salt tablets and is unclear whether or not he is actually continuing this or not, in addition to that he has obviously been using alcohol as he does have a detectable alcohol level here today of 80. Have contacted Dr. Burnett in lieu of Dr. Haines given the call schedule who agrees to admit this patient to a monitored bed. Deferred administration of fluids at this time. While awaiting admission this patient attempted to stand up and leave the emergency department, because of his remarkably diminished insight in this setting of confusion I do not believe that it is appropriate for him to leave the emergency department I do not believe that he has appropriate capacity to make such a decision. The administration of a sedative was given in the form of Valium intravenously as well as Haldol intravenously. Thereafter he became more comfortable, was tolerating p.o. in his room eating [employer]. He was pleasant but somewhat obstinate. His mother was at the bedside said that he was doing okay. - Vital Signs Vital signs: Temp Pulse Resp BP Pulse Ox 97.9 F 64 16 101/52 L 97 09/10/18 16:21 09/10/18 16:21 09/10/18 16:21 09/10/18 16:21 09/10/18 16:21 - Laboratory Result Diagrams: 09/10/18 11:02 09/10/18 11:02 Laboratory results interpreted by me: 09/10/18 09/10/18 09/10/18 11:02 11:02 11:02 MCH 33.5 H Sodium 125.9 L Chloride 89 L Creatinine 0.48 L ALT 16 L Ammonia < 8.7 L Albumin 5.2 H Discharge - Discharge Clinical Impression: Hyponatremia, Confusion, Alcohol abuse, Occasional tremors Condition: Stable Disposition: ADMITTED INPATIENT Admitting Provider: [facility] Unit Admitted: Telemetry
[2018-09-10 11:24] LABS: ABSOLUTE BASOPHILS # (AUTO) 0.1 10^3/uL (0.0-0.2); ABSOLUTE EOSINOPHILS # (AUTO) 0.1 10^3/uL (0.0-0.6); ABSOLUTE LYMPHOCYTES (AUTO) 1.5 10^3/uL (0.5-4.7); ABSOLUTE MONOCYTES (AUTO) 0.5 10^3/uL (0.1-1.4); ABSOLUTE NEUT (AUTO) 3.1 10^3/uL (1.7-8.2); BASOPHILS % (AUTO) 1.1 % (0-2); HEMATOCRIT 41.2 % (37.9-51.0); HEMOGLOBIN 14.6 g/dL (13.5-17.0); LYMPHOCYTES % (AUTO) 29.2 % (13-45); MEAN CORPUSCULAR HEMOGLOBIN 33.5 pg (27.0-33.4); MEAN CORPUSCULAR HGB CONC 35.6 g/dL (32.0-36.0); MEAN CORPUSCULAR VOLUME 94 fl (80-97); MONOCYTES % (AUTO) 9.1 % (3-13); PLATELET COUNT 405 10^3/uL (150-450); RED BLOOD COUNT 4.37 10^6/uL (4.35-5.55); RED CELL DISTRIBUTION WIDTH 13.5 % (11.5-14.0); SEGMENTED NEUTROPHILS % (AUTO) 58.6 % (42-78); TOTAL CELLS COUNTED % (AUTO) 100 %; WHITE BLOOD COUNT 5.2 10^3/uL (4.0-10.5)
[2018-09-10 11:37] LABS: ALANINE AMINOTRANSFERASE 16 U/L (21-72); ALBUMIN 5.2 g/dL (3.5-5.0); ALCOHOL 83 mg/dL (NONE DETECTED); ALKALINE PHOSPHATASE 67 U/L (38-126); ANION GAP 14 (5-19); ASPARTATE AMINO TRANSFERASE 22 U/L (17-59); BILIRUBIN,DIRECT 0.3 mg/dL (0.0-0.4); BILIRUBIN,TOTAL 0.4 mg/dL (0.2-1.3); BLOOD UREA NITROGEN 7 mg/dL (7-20); CALCIUM 9.7 mg/dL (8.4-10.2); CARBON DIOXIDE 23 mmol/L (22-30); CHLORIDE 89 mmol/L (98-107); GLUCOSE 94 mg/dL (75-110); POTASSIUM 4.7 mmol/L (3.6-5.0); SODIUM 125.9 mmol/L (137-145); TOTAL PROTEIN 7.7 g/dL (6.3-8.2)
[2018-09-10] MEDS ORDERED: HALOPERIDOL LACTATE INJ 5 MG/1 ML VIAL IV ONE ×2 (12:35→14:17)
[2018-09-10] MEDS ORDERED: DIAZEPAM INJ 10 MG/2 ML DISP.SYRIN IV ONE ×2 (12:35→14:16)
[2018-09-10] MEDS ORDERED: NORMAL SALINE 1000 ML 1,000 ML with POTASSIUM CHLORIDE 20 MEQ, MAGNESIUM SULFATE 8 MEQ,... IV ONE ×5 (14:30)
[2018-09-10] MEDS ORDERED: LOSARTAN POTASSIUM 50 MG TABLET PO ONE (18:00)
[2018-09-10] MEDS ORDERED: NORMAL SALINE 1000 ML 1,000 ML with POTASSIUM CHLORIDE 20 MEQ, MAGNESIUM SULFATE 8 MEQ,... IV SCH ×5 (18:00)
[2018-09-10] MEDS ORDERED: THIAMINE HCL 100 MG, FOLIC ACID 1 MG in NORMAL SALINE 250 ML IV SCH (18:00)
[2018-09-10] MEDS ORDERED: POTASSI CL 40 MEQ/NS 1L 1,000 ML IV PRN (18:17)
[2018-09-10] MEDS ORDERED: THIAMINE HCL INJ 200 MG/2 ML VIAL INJ PRN (18:38)
[2018-09-10] MEDS ORDERED: FOLIC ACID INJ 5 MG/1 ML 10 ML VIAL IV PRN (18:39)
[2018-09-10] MEDS: BUSPIRONE HCL 10 MG TABLET PO SCH ×2 (18:46→21:42)
[2018-09-10] MEDS: LORAZEPAM INJ 2 MG/1 ML VIAL IV SCH (18:47)
[2018-09-10 18:57] LABS: INTERNATIONAL RATION (INR) 0.92; PROTHROMBIN TIME 12.8 SEC (11.4-15.4)
[2018-09-10 18:58] LABS: PARTIAL THROMBOPLASTIN TIME 30.9 SEC (23.5-35.8)
--- NOTE | 2018-09-10 19:00 | PDOC H&P ---
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 Family denies any history of liver cirrhosis, and the emergency room he was evaluated he was found to have hyponatremia, with sodium of 125, CT head was done it was negative for any acute pathology. The emergency room physician wants him admitted for management, when I saw him on the floor he has no eye contact, he would not answer questions asked of him the blood alcohol level was 83, elevated he has no history of DWI/DUI Past Medical History Cardiac Medical History: Reports: Hypertension Psychiatric Medical History: Reports: Depression Social History Smoking Status: Current Every Day Smoker Frequency of Alcohol Use: Heavy Hx Recreational Drug Use: No Drugs: None Hx Prescription Drug Abuse: No - Advance Directive Resuscitation Status: Full Code Family History Family History: Reviewed & Not Pertinent Parental Family History Reviewed: Yes Children Family History Reviewed: Yes Sibling(s) Family History Reviewed.: Yes Medication/Allergy Home Medications: Buspirone HCl [Buspar 5 mg Tablet] 5 mg PO QID 09/10/18 Olmesartan Medoxomil [Benicar] 40 mg PO DAILY 09/10/18 Allergies/Adverse Reactions: No Known Allergies Allergy (Verified 09/10/18 10:36) Review of Systems Constitutional: ABSENT: chills, fever(s), headache(s), weight gain, weight loss Eyes: ABSENT: visual disturbances Ears: ABSENT: hearing changes Cardiovascular: ABSENT: chest pain, dyspnea on exertion, edema, orthropnea, palpitations Respiratory: ABSENT: cough, hemoptysis Gastrointestinal: ABSENT: abdominal pain, constipation, diarrhea, hematemesis, hematochezia, nausea, vomiting Genitourinary: ABSENT: dysuria, hematuria Musculoskeletal: ABSENT: joint swelling Integumentary: ABSENT: rash, wounds Neurological: PRESENT: confusion Psychiatric: ABSENT: anxiety, depression, homidical ideation, suicidal ideation Endocrine: ABSENT: cold intolerance, heat intolerance, menstrual abnormalities, polydipsia, polyuria Hematologic/Lymphatic: ABSENT: easy bleeding, easy bruising, lymphadenopathy Physical Exam Vital Signs: Temp Pulse Resp BP Pulse Ox 97.9 F 64 16 101/52 L 97 09/10/18 16:21 09/10/18 16:21 09/10/18 16:21 09/10/18 16:21 09/10/18 16:21 Intake & Output 09/09/18 09/10/18 09/11/18 06:59 06:59 06:59 Weight 63 kg General appearance: PRESENT: no acute distress Head exam: PRESENT: atraumatic, normocephalic Eye exam: PRESENT: conjunctiva pink, EOMI, PERRLA Ear exam: PRESENT: normal external ear exam Mouth exam: PRESENT: moist, tongue midline Neck exam: PRESENT: full ROM Respiratory exam: PRESENT: clear to auscultation anais Cardiovascular exam: PRESENT: RRR, +S1, +S2 Pulses: PRESENT: normal dorsalis pedis pul, +2 pedal pulses bilateral Vascular exam: PRESENT: normal capillary refill GI/Abdominal exam: PRESENT: normal bowel sounds, soft Rectal exam: PRESENT: deferred Extremities exam: PRESENT: other - Dry skin Neurological exam: PRESENT: alert, CN II-XII grossly intact Psychiatric exam: PRESENT: appropriate affect, normal mood Skin exam: PRESENT: dry, intact, warm Results Laboratory Results: 09/10/18 11:02 09/10/18 11:02 09/10/18 09/10/18 09/10/18 11:02 11:02 11:02 WBC 5.2 RBC 4.37 Hgb 14.6 Hct 41.2 MCV 94 MCH 33.5 H MCHC 35.6 RDW 13.5 Plt Count 405 Seg Neutrophils % 58.6 Lymphocytes % 29.2 Monocytes % 9.1 Eosinophils % 2.0 Basophils % 1.1 Absolute Neutrophils 3.1 Absolute Lymphocytes 1.5 Absolute Monocytes 0.5 Absolute Eosinophils 0.1 Absolute Basophils 0.1 Sodium 125.9 L Potassium 4.7 Chloride 89 L Carbon Dioxide 23 Anion Gap 14 BUN 7 Creatinine 0.48 L Est GFR ( Amer) > 60 Est GFR (Non-Af Amer) > 60 Glucose 94 Serum Osmolality Calcium 9.7 Total Bilirubin 0.4 AST 22 ALT 16 L Alkaline Phosphatase 67 Ammonia < 8.7 L Total Protein 7.7 Albumin 5.2 H 09/10/18 11:02 WBC RBC Hgb Hct MCV MCH MCHC RDW Plt Count Seg Neutrophils % Lymphocytes % Monocytes % Eosinophils % Basophils % Absolute Neutrophils Absolute Lymphocytes Absolute Monocytes Absolute Eosinophils Absolute Basophils Sodium Potassium Chloride Carbon Dioxide Anion Gap BUN Creatinine Est GFR ( Amer) Est GFR (Non-Af Amer) Glucose Serum Osmolality 275 Calcium Total Bilirubin AST ALT Alkaline Phosphatase Ammonia Total Protein Albumin Impressions: Head CT 09/10/18 10:45 IMPRESSION: NORMAL BRAIN CT WITHOUT CONTRAST. EVIDENCE OF ACUTE STROKE: NO. Assessment & Plan - Diagnosis (1) Encephalopathy Is this a current diagnosis for this admission?: Yes Plan: Confusion is most likely multifactorial including alcohol abuse, hyponatremia, (2) Hyponatremia Is this a current diagnosis for this admission?: Yes Plan: This is most likely related to alcoholism (3) Alcohol abuse Is this a current diagnosis for this admission?: Yes Plan: Patient's last drink was yesterday, I anticipate DT in 72 hours, I will start him on lorazepam IV to prevent DTs
[2018-09-10 19:21] LABS: CREATINE KINASE MB 0.33 ng/mL (<4.55)
[2018-09-10 19:22] LABS: TROPONIN I < 0.012 ng/mL
[2018-09-10] MEDS ORDERED: FOLIC ACID INJ 5 MG/1 ML 10 ML VIAL ONE (21:39)
[2018-09-10] MEDS ORDERED: THIAMINE HCL INJ 200 MG/2 ML VIAL ONE (21:40)
[2018-09-11] MEDS ORDERED: NICOTINE 21 MG/24 HR PATCH.TD24 TD ONE (00:30)
[2018-09-11] MEDS: LORAZEPAM INJ 2 MG/1 ML VIAL IV SCH ×2 (00:33→05:48)
[2018-09-11 01:03] LABS: CREATINE KINASE MB 0.28 ng/mL (<4.55); TROPONIN I < 0.012 ng/mL
[2018-09-11 06:04] LABS: URINE AMPHETAMINES SCREEN NEGATIVE; URINE BARBITURATES SCREEN NEGATIVE; URINE COCAINE SCREEN NEGATIVE; URINE MARIJUANA (THC) SCREEN NEGATIVE; URINE METHADONE SCREEN NEGATIVE; URINE PHENCYCLIDINE SCREEN NEGATIVE
[2018-09-11 06:22] LABS: URINE BENZODIAZEPINES SCREEN UNCONFIRMED POSITIVE
[2018-09-11 06:59] LABS: APPEARANCE,URINE CLEAR; BILIRUBIN,URINE NEGATIVE (NEGATIVE); COLOR,URINE YELLOW; GLUCOSE, URINE NEGATIVE (NEGATIVE); KETONES,URINE NEGATIVE (NEGATIVE); LEUKOCYTE ESTERASE,URINE NEGATIVE (NEGATIVE); NITRITE,URINE NEGATIVE (NEGATIVE); PROTEIN,URINE NEGATIVE (NEGATIVE); URINE SPECIFIC GRAVITY 1.012; UROBILINOGEN,URINE NEGATIVE mg/dL (<2.0)
[2018-09-11 07:38] LABS: CREATINE KINASE MB 0.35 ng/mL (<4.55)
[2018-09-11 07:46] LABS: TROPONIN I < 0.012 ng/mL
[2018-09-11] MEDS: BUSPIRONE HCL 10 MG TABLET PO SCH (09:04)
[2018-09-11] MEDS ORDERED: LOSARTAN POTASSIUM 50 MG TABLET PO SCH (10:00)
[2018-09-11] MEDS ORDERED: NICOTINE 21 MG/24 HR PATCH.TD24 TD SCH (10:00)
[2018-09-11 12:20] LABS: ABSOLUTE BASOPHILS # (AUTO) 0.1 10^3/uL (0.0-0.2); ABSOLUTE EOSINOPHILS # (AUTO) 0.2 10^3/uL (0.0-0.6); ABSOLUTE LYMPHOCYTES (AUTO) 1.3 10^3/uL (0.5-4.7); ABSOLUTE MONOCYTES (AUTO) 0.4 10^3/uL (0.1-1.4); ABSOLUTE NEUT (AUTO) 3.4 10^3/uL (1.7-8.2); BASOPHILS % (AUTO) 1.2 % (0-2); EOSINOPHILS % (AUTO) 3.5 % (0-6); HEMATOCRIT 37.1 % (37.9-51.0); HEMOGLOBIN 12.8 g/dL (13.5-17.0); LYMPHOCYTES % (AUTO) 24.5 % (13-45); MEAN CORPUSCULAR HEMOGLOBIN 33.3 pg (27.0-33.4); MEAN CORPUSCULAR HGB CONC 34.6 g/dL (32.0-36.0); MEAN CORPUSCULAR VOLUME 96 fl (80-97); MONOCYTES % (AUTO) 8.2 % (3-13); PLATELET COUNT 357 10^3/uL (150-450); RED BLOOD COUNT 3.86 10^6/uL (4.35-5.55); RED CELL DISTRIBUTION WIDTH 13.2 % (11.5-14.0); SEGMENTED NEUTROPHILS % (AUTO) 62.6 % (42-78); TOTAL CELLS COUNTED % (AUTO) 100 %; WHITE BLOOD COUNT 5.5 10^3/uL (4.0-10.5)
[2018-09-11 12:26] LABS: ALANINE AMINOTRANSFERASE 21 U/L (21-72); ALBUMIN 3.9 g/dL (3.5-5.0); ALKALINE PHOSPHATASE 49 U/L (38-126); ANION GAP 9 (5-19); ASPARTATE AMINO TRANSFERASE 19 U/L (17-59); BILIRUBIN,DIRECT 0.2 mg/dL (0.0-0.4); BILIRUBIN,TOTAL 0.3 mg/dL (0.2-1.3); BLOOD UREA NITROGEN 13 mg/dL (7-20); CALCIUM 9.3 mg/dL (8.4-10.2); CARBON DIOXIDE 23 mmol/L (22-30); CHLORIDE 96 mmol/L (98-107); GLUCOSE 113 mg/dL (75-110); SODIUM 127.9 mmol/L (137-145); TOTAL PROTEIN 6.3 g/dL (6.3-8.2)
--- NOTE | 2018-09-11 14:03 | PDOC DISCHARGE SUMMARY ---
General - Admit/Disc Date/PCP Admission Date/Primary Care Provider: 09/10/18 13:47 DELROY VYAS MD Discharge Date: 09/11/18 - Discharge Diagnosis (1) Encephalopathy Is this a current diagnosis for this admission?: Yes (2) Hyponatremia Is this a current diagnosis for this admission?: Yes (3) Alcohol abuse Is this a current diagnosis for this admission?: Yes - Additional Information Resuscitation Status: Full Code Prescriptions: Thiamine HCl [Thiamine 100 mg Tablet] 100 mg PO DAILY #90 tablet Home Medications: Buspirone HCl [Buspar 5 mg Tablet] 5 mg PO QID 09/10/18 Olmesartan Medoxomil [Benicar] 40 mg PO DAILY 09/10/18 Thiamine HCl [Thiamine 100 mg Tablet] 100 mg PO DAILY #90 tablet 09/11/18 History of Present Illness History of Present Illness: VARGHESE CLARK JR is a 48 year old male, patient is an alcoholic, he drinks beer every day, 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 Family denies any history of liver cirrhosis, and the emergency room he was evaluated he was found to have hyponatremia, with sodium of 125, CT head was done it was negative for any acute pathology. The emergency room physician wants him adm itted for management, when I saw him on the floor he has no eye contact, he would not answer questions asked of him the blood alcohol level was 83, elevated he has no history of DWI/DUI Hospital Course Hospital Course: Patient was seen by the bedside, he is alert he was admitted yesterday for the management of encephalopathy. He is not confused today very coherent. He was treated with IV lorazepam because of risk of alcohol withdrawal syndrome, the se rum sodium is somewhat improved. The etiology of the encephalopathic symptoms is probably multifactorial including alcohol, hyponatremia. The patient is back to baseline, he is a working alcoholic, patient's mother attested to the fact that he does not drink alcohol and drive an automobile. He will be discharged home today advised to check himself in to alcohol rehab Physical Exam Vital Signs: Temp Pulse Resp BP Pulse Ox 97.5 F 75 16 149/85 H 100 09/11/18 11:16 09/11/18 11:16 09/11/18 11:16 09/11/18 11:16 09/11/18 11:16 Intake & Output 09/10/18 09/11/18 09/12/18 06:59 06:59 06:59 Intake Total 1773 Balance 1773 Weight 64.4 kg General appearance: PRESENT: no acute distress, well-developed, well-nourished Head exam: PRESENT: atraumatic, normocephalic Eye exam: PRESENT: conjunctiva pink, EOMI, PERRLA Ear exam: PRESENT: normal external ear exam Mouth exam: PRESENT: moist, tongue midline Neck exam: PRESENT: full ROM Respiratory exam: PRESENT: clear to auscultation anias Cardiovascular exam: PRESENT: RRR, +S1, +S2 Pulses: PRESENT: normal dorsalis pedis pul, +2 pedal pulses bilateral Vascular exam: PRESENT: normal capillary refill GI/Abdominal exam: PRESENT: normal bowel sounds, soft Rectal exam: PRESENT: deferred Neurological exam: PRESENT: alert, awake, oriented to person, oriented to place, oriented to time, oriented to situation, CN II-XII grossly intact Psychiatric exam: PRESENT: appropriate affect, normal mood Skin exam: PRESENT: dry, intact, warm Results Laboratory Results: 09/11/18 06:47 09/11/18 06:47 09/10/18 09/11/18 09/11/18 11:02 05:30 05:30 WBC RBC Hgb Hct MCV MCH MCHC RDW Plt Count Seg Neutrophils % Lymphocytes % Monocytes % Eosinophils % Basophils % Absolute Neutrophils Absolute Lymphocytes Absolute Monocytes Absolute Eosinophils Absolute Basophils Sodium Potassium Chloride Carbon Dioxide Anion Gap BUN Creatinine Est GFR ( Amer) Est GFR (Non-Af Amer) Glucose Serum Osmolality 275 Calcium Total Bilirubin AST ALT Alkaline Phosphatase Total Protein Albumin Urine Color YELLOW Urine Appearance CLEAR Urine pH 6.0 Ur Specific [place] 1.012 Urine Protein NEGATIVE Urine Glucose (UA) NEGATIVE Urine Ketones NEGATIVE Urine Blood NEGATIVE Urine Nitrite NEGATIVE Ur Leukocyte Esterase NEGATIVE Urine WBC (Auto) 0 Urine RBC (Auto) 0 Urine Osmolality 447 09/11/18 09/11/18 06:47 06:47 WBC 5.5 RBC 3.86 L Hgb 12.8 L Hct 37.1 L MCV 96 MCH 33.3 MCHC 34.6 RDW 13.2 Plt Count 357 Seg Neutrophils % 62.6 Lymphocytes % 24.5 Monocytes % 8.2 Eosinophils % 3.5 Basophils % 1.2 Absolute Neutrophils 3.4 Absolute Lymphocytes 1.3 Absolute Monocytes 0.4 Absolute Eosinophils 0.2 Absolute Basophils 0.1 Sodium 127.9 L Potassium 5.0 Chloride 96 L Carbon Dioxide 23 Anion Gap 9 BUN 13 Creatinine 0.73 Est GFR ( Amer) > 60 Est GFR (Non-Af Amer) > 60 Glucose 113 H Serum Osmolality Calcium 9.3 Total Bilirubin 0.3 AST 19 ALT 21 Alkaline Phosphatase 49 Total Protein 6.3 Albumin 3.9 Urine Color Urine Appearance Urine pH Ur Specific [place] Urine Protein Urine Glucose (UA) Urine Ketones Urine Blood Urine Nitrite Ur Leukocyte Esterase Urine WBC (Auto) Urine RBC (Auto) Urine Osmolality 09/10/18 09/10/18 09/11/18 18:42 18:42 00:25 Creatine Kinase 57 56 CK-MB (CK-2) 0.33 Troponin I < 0.012 09/11/18 09/11/18 09/11/18 00:25 06:47 06:47 Creatine Kinase 60 CK-MB (CK-2) 0.28 0.35 Troponin I < 0.012 < 0.012 Impressions: Head CT 09/10/18 10:45 IMPRESSION: NORMAL BRAIN CT WITHOUT CONTRAST. EVIDENCE OF ACUTE STROKE: NO. Qualifiers - * PATIENT BEING DISCHARGED WITH ANY OF THE FOLLOWING DIAGNOSIS: No
[2018-09-11 14:14] VITALS: BP 107/63
== END 2018-09-11 14:54 | disposition home or self-care (01) | DRG 641 ==
LOC: ER 10:33 → EH 13:47 → 4S 16:07
PROVIDERS: ADMIT Internal Medicine; ATTEND Internal Medicine
DX: E87.1 Hypo-osmolality and hyponatremia (principal); G93.49 Other encephalopathy; F10.10 Alcohol abuse, uncomplicated; Y90.4 Blood alcohol level of 80-99 mg/100 ml; I10 Essential (primary) hypertension; F32.9 Major depressive disorder, single episode, unspecified; F17.200 Nicotine dependence, unspecified, uncomplicated
CPT/HCPCS: 36415; 70450; 80053; 80307; 81001; 82140; 82550; 82553; 82962; 83930; 83935; 84300; 84484; 85025; 85610; 85730; 96374; 96375; 99285; J1630; J2060; J3360; J3411; J3475; J3480; J3490; J7030

== ENCOUNTER 2018-09-13 21:20 | Observation (INO) | payer BC, OTHER ==
[2018-09-13 22:02] LABS: ABSOLUTE BASOPHILS # (AUTO) 0.1 10^3/uL (0.0-0.2); ABSOLUTE EOSINOPHILS # (AUTO) 0.3 10^3/uL (0.0-0.6); ABSOLUTE LYMPHOCYTES (AUTO) 2.1 10^3/uL (0.5-4.7); ABSOLUTE MONOCYTES (AUTO) 0.6 10^3/uL (0.1-1.4); BASOPHILS % (AUTO) 1.1 % (0-2); EOSINOPHILS % (AUTO) 3.8 % (0-6); HEMATOCRIT 38.3 % (37.9-51.0); HEMOGLOBIN 13.8 g/dL (13.5-17.0); LYMPHOCYTES % (AUTO) 29.6 % (13-45); MEAN CORPUSCULAR HEMOGLOBIN 33.8 pg (27.0-33.4); MEAN CORPUSCULAR VOLUME 94 fl (80-97); MONOCYTES % (AUTO) 8.2 % (3-13); PLATELET COUNT 402 10^3/uL (150-450); RED BLOOD COUNT 4.08 10^6/uL (4.35-5.55); RED CELL DISTRIBUTION WIDTH 13.6 % (11.5-14.0); SEGMENTED NEUTROPHILS % (AUTO) 57.3 % (42-78); TOTAL CELLS COUNTED % (AUTO) 100 %
[2018-09-13 22:13] LABS: ALANINE AMINOTRANSFERASE 27 U/L (21-72); ALBUMIN 5.4 g/dL (3.5-5.0); ALCOHOL 104 mg/dL (NONE DETECTED); ALKALINE PHOSPHATASE 64 U/L (38-126); ANION GAP 15 (5-19); ASPARTATE AMINO TRANSFERASE 32 U/L (17-59); BILIRUBIN,DIRECT 0.3 mg/dL (0.0-0.4); BILIRUBIN,TOTAL 0.4 mg/dL (0.2-1.3); BLOOD UREA NITROGEN 10 mg/dL (7-20); CALCIUM 9.9 mg/dL (8.4-10.2); CARBON DIOXIDE 23 mmol/L (22-30); CHLORIDE 89 mmol/L (98-107); GLUCOSE 90 mg/dL (75-110); POTASSIUM 4.7 mmol/L (3.6-5.0); SODIUM 126.5 mmol/L (137-145); TOTAL PROTEIN 7.7 g/dL (6.3-8.2)
[2018-09-13 22:25] LABS: APPEARANCE,URINE CLEAR; BILIRUBIN,URINE NEGATIVE (NEGATIVE); COLOR,URINE COLORLESS; GLUCOSE, URINE NEGATIVE (NEGATIVE); KETONES,URINE NEGATIVE (NEGATIVE); LEUKOCYTE ESTERASE,URINE NEGATIVE (NEGATIVE); NITRITE,URINE NEGATIVE (NEGATIVE); PROTEIN,URINE NEGATIVE (NEGATIVE); URINE SPECIFIC GRAVITY 1.003; UROBILINOGEN,URINE NEGATIVE mg/dL (<2.0)
[2018-09-13] MEDS ORDERED: NORMAL SALINE 1000 ML 500 ML IV PRN (22:39)
[2018-09-13 22:41] LABS: URINE BARBITURATES SCREEN NEGATIVE; URINE BENZODIAZEPINES SCREEN NEGATIVE; URINE COCAINE SCREEN NEGATIVE; URINE MARIJUANA (THC) SCREEN NEGATIVE; URINE METHADONE SCREEN NEGATIVE; URINE PHENCYCLIDINE SCREEN NEGATIVE
[2018-09-13 22:45] LABS: URINE AMPHETAMINES SCREEN NEGATIVE
--- NOTE | 2018-09-13 22:49 | RADIOLOGY REPORT (SQ) ---
EXAM DESCRIPTION: CT HEAD WITHOUT IV CONTRAST COMPLETED DATE/TME: 09/13/2018 00:00 CLINICAL HISTORY: 48 years, Male, altered mental status COMPARISON: 09/10/2018 CT brain TECHNIQUE: 190 Images stored on PACS. All CT scanners at this facility use dose modulation, iterative reconstruction, and/or weight based dosing when appropriate to reduce radiation dose to as low as reasonably achievable (ALARA). [facility]: Dose Right [facility]: CareDose [facility]: Dose Right [facility]: Teradose 4D [facility]: [employer] LIMITATIONS: None. FINDINGS: The globes are intact. Mucosal thickening of the maxillary sinuses, ethmoid air cells, and sphenoid sinuses. No displaced or depressed skull fracture. No intra or extra-axial hemorrhage. CT is limited for evaluation of acute infarct. No CT evidence for large or territorial acute infarct. . No mass or midline shift. IMPRESSION: Negative for acute intracranial abnormality. Paranasal sinus disease, as above TECHNICAL DOCUMENTATION: Quality ID # 436: Final reports with documentation of one or more dose reduction techniques (e.g., Automated exposure control, adjustment of the mA and/or kV according to patient size, use of iterative reconstruction technique) copyright 2010 [employer]- All Rights Reserved
--- NOTE | 2018-09-13 23:08 | ER Document Report ---
ED General - General Chief Complaint: Altered Mental Status Stated Complaint: NOT FEELING LIKE SELF Time Seen by Provider: 09/13/18 21:44 Mode of Arrival: Medic Information source: Patient, Relative, [facility] Records Cannot obtain history due to: Altered mental status Notes: 48-year-old male with known alcoholism, chronic hyponatremia presents via EMS from home after the family noticed that his confusion that started 5 days ago has significantly worsened. Mother is at the bedside and states that the patient has been hallucinating, speaking to people that you are not there. Patient admits to drinking 4 beers today but his sister pulled me aside and states that he drinks at least a 12 pack daily. No evidence of trauma on the patient's exam. He is alert and oriented to self only. He is not aware that today is [place]. His sister informs me that he decorated and bought [employer] gifts but he is stating that it is 1985. He denies any physical complaints. TRAVEL OUTSIDE OF THE [place] IN LAST 30 DAYS: No - HPI Onset: Other Similar symptoms previously: Yes Recently seen / treated by doctor: Yes - Recently admitted 5 days prior to arrival - Related Data Allergies/Adverse Reactions: No Known Allergies Allergy (Verified 09/10/18 10:36) Past Medical History - General Information source: Patient, [facility] Records - Social History Smoking Status: Current Every Day Smoker Cigarette use (# per day): Yes - 20 Chew tobacco use (# tins/day): No Smoking Education Provided: Yes - Smoking cessation counseling was provided for 4 minutes at the bedside Frequency of alcohol use: Heavy Drug Abuse: None Lives with: Alone Family History: Reviewed & Not Pertinent Patient has suicidal ideation: No Patient has homicidal ideation: No - Past Medical History Cardiac Medical History: Reports: Hx Hypertension Renal/ Medical History: Denies: Hx Peritoneal Dialysis Psychiatric Medical History: Reports: Hx Depression - Immunizations Hx Diphtheria, Pertussis, Tetanus Vaccination: Yes Review of Systems - Review of Systems -: Yes ROS unobtainable due to patient's medical condition Physical Exam - Notes Notes: PHYSICAL EXAMINATION: GENERAL: Well-appearing, well-nourished and in no acute distress. HEAD: Atraumatic, normocephalic. EYES: Pupils equal round and reactive to light, extraocular movements intact, sclera anicteric, conjunctiva are normal. ENT: Nares patent, oropharynx clear without exudates. Moist mucous membranes. NECK: Normal range of motion, supple without lymphadenopathy LUNGS: Breath sounds clear to auscultation bilaterally and equal. No wheezes rales or rhonchi. HEART: Regular rate and rhythm without murmurs ABDOMEN: Soft, nontender, nondistended abdomen. No guarding, no rebound. No m asses appreciated. Musculoskeletal: Normal range of motion, no pitting or edema. No cyanosis. NEUROLOGICAL: Cranial nerves grossly intact. Normal speech, normal gait. Normal sensory, motor exams AOx1 PSYCH: Alert but only oriented to self. Continually asked the same questions. SKIN: Warm, Dry, normal turgor, no rashes or lesions noted. Course - Re-evaluation Re-evalutation: 09/13/18 23:46 Laboratory 09/13/18 09/13/18 09/13/18 21:40 21:40 22:15 WBC 7.0 RBC 4.08 L Hgb 13.8 Hct 38.3 MCV 94 MCH 33.8 H MCHC 36.0 RDW 13.6 Plt Count 402 Seg Neutrophils % 57.3 Lymphocytes % 29.6 Monocytes % 8.2 Eosinophils % 3.8 Basophils % 1.1 Absolute Neutrophils 4.0 Absolute Lymphocytes 2.1 Absolute Monocytes 0.6 Absolute Eosinophils 0.3 Absolute Basophils 0.1 Sodium 126.5 L Potassium 4.7 Chloride 89 L Carbon Dioxide 23 Anion Gap 15 BUN 10 Creatinine 0.64 Est GFR ( Amer) > 60 Est GFR (Non-Af Amer) > 60 Glucose 90 Calcium 9.9 Total Bilirubin 0.4 Direct Bilirubin 0.3 Neonat Total Bilirubin Not Reportable Neonat Direct Bilirubin Not Reportable Neonat Indirect Bili Not Reportable AST 32 ALT 27 Alkaline Phosphatase 64 Ammonia Total Protein 7.7 Albumin 5.4 H Urine Color COLORLESS Urine Appearance CLEAR Urine pH 5.0 Ur Specific [place] 1.003 Urine Protein NEGATIVE Urine Glucose (UA) NEGATIVE Urine Ketones NEGATIVE Urine Blood NEGATIVE Urine Nitrite NEGATIVE Urine Bilirubin NEGATIVE Urine Urobilinogen NEGATIVE Ur Leukocyte Esterase NEGATIVE Urine WBC (Auto) 0 Urine RBC (Auto) 0 Urine Mucus (Auto) RARE Urine Ascorbic Acid NEGATIVE Urine Opiates Screen Urine Methadone Screen Ur Barbiturates Screen Ur Phencyclidine Scrn Ur Amphetamines Screen U Benzodiazepines Scrn Urine Cocaine Screen U Marijuana (THC) Screen Serum Alcohol 104 09/13/18 09/13/18 22:15 22:55 WBC RBC Hgb Hct MCV MCH MCHC RDW Plt Count Seg Neutrophils % Lymphocytes % Monocytes % Eosinophils % Basophils % Absolute Neutrophils Absolute Lymphocytes Absolute Monocytes Absolute Eosinophils Absolute Basophils Sodium Potassium Chloride Carbon Dioxide Anion Gap BUN Creatinine Est GFR ( Amer) Est GFR (Non-Af Amer) Glucose Calcium Total Bilirubin Direct Bilirubin Neonat Total Bilirubin Neonat Direct Bilirubin Neonat Indirect Bili AST ALT Alkaline Phosphatase Ammonia < 8.7 L Total Protein Albumin Urine Color Urine Appearance Urine pH Ur Specific [place] Urine Protein Urine Glucose (UA) Urine Ketones Urine Blood Urine Nitrite Urine Bilirubin Urine Urobilinogen Ur Leukocyte Esterase Urine WBC (Auto) Urine RBC (Auto) Urine Mucus (Auto) Urine Ascorbic Acid Urine Opiates Screen NEGATIVE Urine Methadone Screen NEGATIVE Ur Barbiturates Screen NEGATIVE Ur Phencyclidine Scrn NEGATIVE Ur Amphetamines Screen NEGATIVE U Benzodiazepines Scrn NEGATIVE Urine Cocaine Screen NEGATIVE U Marijuana (THC) Screen NEGATIVE Serum Alcohol Head CT 09/13/18 00:00 IMPRESSION: Negative for acute intracranial abnormality. Paranasal sinus disease, as above TECHNICAL DOCUMENTATION: Quality ID # 436: Final reports with documentation of one or more dose reduction techniques (e.g., Automated exposure control, adjustment of the mA and/or kV according to patient size, use of iterative reconstruction technique) copyright 2011 [employer]- All Rights Reserved 48-year-old male with known alcoholism, known chronic hyponatremia presents via EMS with worsening confusion per family. Patient believes that it is 1985. He has no idea that today is [place] although his family states that he has bought [employer] presents and decorated. Mother reports that the patient has been hallucinating and believe that his boss from the [employer] has been outside of his house watching him all day. Patient states that he only drank 4 beers today but his sister reports that he drinks at least twice that. Alcohol level here is 104. Sodium is 126 which appears to be the patient's baseline. Urine drug screen is negative. CBC is without leukocytosis or anemia. CMP does have a sodium of 126 and a chloride of 89. CT of the head was obtained and showed no acute process. Patient consistently is trying to leave the emergency department. He is not capable at this point to make that decision. 1 mg of Ativan IV was ordered and soft restraints placed. Patient has been accepted for admission by Dr. Burnett. - Laboratory Result Diagrams: 09/13/18 21:40 09/13/18 21:40 Laboratory results interpreted by me: 09/13/18 09/13/18 09/13/18 21:40 21:40 22:55 RBC 4.08 L MCH 33.8 H Sodium 126.5 L Chloride 89 L Ammonia < 8.7 L Albumin 5.4 H - Diagnostic Test Radiology reviewed: Image reviewed, Reports reviewed Discharge - Discharge Clinical Impression: Encephalopathy, Hyponatremia, Alcohol abuse, Confusion Condition: Good Disposition: ADMITTED OBSERVATION Admitting Provider: Hortencia Unit Admitted: Telemetry
[2018-09-13] MEDS ORDERED: LORAZEPAM INJ 2 MG/1 ML VIAL IV ONE (23:42)
[2018-09-14] MEDS ORDERED: LORAZEPAM INJ 2 MG/1 ML VIAL IV ONE (00:26)
[2018-09-14 01:57] VITALS: BP 126/70
--- NOTE | 2018-09-14 14:47 | Progress Note ---
Provider Note Provider Note: Patient came in last night, I never saw this patient, he eloped from the floor before he was seen by me this morning
--- NOTE | 2018-09-17 08:23 | PDOC H&P ---
History of Present Illness Admission Date/PCP: 09/13/18 23:14 DELROY VYAS MD History of Present Illness: VARGHESE CLARK JR is a 48 year old male,Patient came in last night I did not see the patient he eloped from the hospital Past Medical History Cardiac Medical History: Reports: Hypertension Psychiatric Medical History: Reports: Depression Social History Lives with: Alone Smoking Status: Current Every Day Smoker Cigarettes Packs Per Day: 20 Frequency of Alcohol Use: Heavy Hx Recreational Drug Use: No Drugs: None Hx Prescription Drug Abuse: No Family History Family History: Reviewed & Not Pertinent Parental Family History Reviewed: Yes Children Family History Reviewed: Yes Sibling(s) Family History Reviewed.: Yes Medication/Allergy Home Medications: Buspirone HCl [Buspar 5 mg Tablet] 5 mg PO QID 09/10/18 Olmesartan Medoxomil [Benicar] 40 mg PO DAILY 09/10/18 Thiamine HCl [Thiamine 100 mg Tablet] 100 mg PO DAILY #90 tablet 09/11/18 Allergies/Adverse Reactions: No Known Allergies Allergy (Verified 09/10/18 10:36) Review of Systems ROS unobtainable: Other - patient eloped Physical Exam Vital Signs: Temp Pulse Resp BP Pulse Ox 98.6 F 67 18 126/70 H 96 09/14/18 01:33 09/14/18 01:33 09/14/18 01:33 09/14/18 01:33 09/14/18 01:33 Results Laboratory Results: 09/13/18 21:40 09/13/18 21:40 Impressions: Head CT 09/13/18 00:00 IMPRESSION: Negative for acute intracranial abnormality. Paranasal sinus disease, as above TECHNICAL DOCUMENTATION: Quality ID # 436: Final reports with documentation of one or more dose reduction techniques (e.g., Automated exposure control, adjustment of the mA and/or kV according to patient size, use of iterative reconstruction technique) copyright 2011 [employer]- All Rights Reserved
== END 2018-09-14 04:45 | disposition left against medical advice (07) ==
LOC: ER 21:20 → EH 23:14 → 4N 09-14 01:20
PROVIDERS: ADMIT Internal Medicine; ATTEND Internal Medicine
PROC: HZ31ZZZ Individual Counseling for Substance Abuse Treatment, Behavioral (ICD-10-PCS; principal; 2018-09-13)
DX: G93.40 Encephalopathy, unspecified (principal); E87.1 Hypo-osmolality and hyponatremia; R41.0 Disorientation, unspecified; Z53.21 Procedure and treatment not carried out due to patient leaving prior to being seen by health care provider; F10.20 Alcohol dependence, uncomplicated; F17.210 Nicotine dependence, cigarettes, uncomplicated; I10 Essential (primary) hypertension; Z60.2 Problems related to living alone; Z79.899 Other long term (current) drug therapy; R44.1 Visual hallucinations; Z78.1 Physical restraint status
CPT/HCPCS: 96376; 99406; 99285; 96361; 96374; 36415; 82962; 80307 ×2; 82140; 85025; 80053; 81001; 70450; G0378 ×3; J2060 ×2; J7030

== ENCOUNTER 2018-09-16 21:20 | Emergency (ER) | payer BC ==
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
[2018-09-16] MEDS ORDERED: THIAMINE HCL 100 MG, FOLIC ACID 1 MG in NORMAL SALINE 250 ML IV ONE (21:53)
[2018-09-16] MEDS ORDERED: THIAMINE HCL INJ 200 MG/2 ML VIAL ONE ×2 (22:54→23:04)
[2018-09-16] MEDS ORDERED: FOLIC ACID INJ 5 MG/1 ML 10 ML VIAL ONE (22:58)
[2018-09-16 23:00] LABS: ABSOLUTE EOSINOPHILS # (AUTO) 0.3 10^3/uL (0.0-0.6); ABSOLUTE MONOCYTES (AUTO) 0.7 10^3/uL (0.1-1.4); ABSOLUTE NEUT (AUTO) 3.6 10^3/uL (1.7-8.2); BASOPHILS % (AUTO) 0.6 % (0-2); EOSINOPHILS % (AUTO) 4.8 % (0-6); HEMATOCRIT 39.7 % (37.9-51.0); HEMOGLOBIN 14.4 g/dL (13.5-17.0); LYMPHOCYTES % (AUTO) 29.5 % (13-45); MEAN CORPUSCULAR HEMOGLOBIN 33.7 pg (27.0-33.4); MEAN CORPUSCULAR HGB CONC 36.2 g/dL (32.0-36.0); MEAN CORPUSCULAR VOLUME 93 fl (80-97); MONOCYTES % (AUTO) 10.8 % (3-13); PLATELET COUNT 381 10^3/uL (150-450); RED BLOOD COUNT 4.26 10^6/uL (4.35-5.55); RED CELL DISTRIBUTION WIDTH 13.4 % (11.5-14.0); SEGMENTED NEUTROPHILS % (AUTO) 54.3 % (42-78); TOTAL CELLS COUNTED % (AUTO) 100 %; WHITE BLOOD COUNT 6.6 10^3/uL (4.0-10.5)
[2018-09-16 23:16] LABS: ALANINE AMINOTRANSFERASE 18 U/L (21-72); ALBUMIN 5.4 g/dL (3.5-5.0); ALCOHOL 15 mg/dL (NONE DETECTED); ALKALINE PHOSPHATASE 77 U/L (38-126); ANION GAP 16 (5-19); ASPARTATE AMINO TRANSFERASE 28 U/L (17-59); BILIRUBIN,DIRECT 0.2 mg/dL (0.0-0.4); BILIRUBIN,TOTAL 0.5 mg/dL (0.2-1.3); BLOOD UREA NITROGEN 8 mg/dL (7-20); CALCIUM 10.3 mg/dL (8.4-10.2); CARBON DIOXIDE 22 mmol/L (22-30); CHLORIDE 88 mmol/L (98-107); GLUCOSE 90 mg/dL (75-110); POTASSIUM 4.5 mmol/L (3.6-5.0); SODIUM 125.6 mmol/L (137-145)
[2018-09-16 23:19] LABS: ACETAMINOPHEN < 10 ug/mL (10-30); SALICYLATE < 1.0 mg/dL (2.0-20.0)
--- NOTE | 2018-09-16 23:32 | RADIOLOGY REPORT (SQ) ---
EXAM DESCRIPTION: CT HEAD WITHOUT IV CONTRAST COMPLETED DATE/TME: 09/16/2018 21:37 CLINICAL HISTORY: 48 years, Male, erratic behavior COMPARISON: Prior CT brain 09/13/2018 TECHNIQUE: 193 Images stored on PACS. All CT scanners at this facility use dose modulation, iterative reconstruction, and/or weight based dosing when appropriate to reduce radiation dose to as low as reasonably achievable (ALARA). [facility]: Dose Right [facility]: CareDose [facility]: Dose Right [facility]: Teradose 4D [facility]: [employer] Labs LIMITATIONS: None. FINDINGS: The globes are intact. Mucosal thickening of the maxillary sinuses and ethmoid air cells. No displaced or depressed skull fracture. No intra or extra-axial hemorrhage. CT is limited for evaluation of acute infarct. No CT evidence for large or territorial acute infarct. No mass or midline shift. IMPRESSION: Negative for acute intracranial abnormality. TECHNICAL DOCUMENTATION: Quality ID # 436: Final reports with documentation of one or more dose reduction techniques (e.g., Automated exposure control, adjustment of the mA and/or kV according to patient size, use of iterative reconstruction technique) copyright 2011 [employer]- All Rights Reserved
[2018-09-17] MEDS ORDERED: HALOPERIDOL LACTATE INJ 5 MG/1 ML VIAL IM ONE (02:27)
--- NOTE | 2018-09-17 04:55 | ER Document Report ---
Doctor's Note Notes: 09/17/18 04:53 Patient evaluated by myself. He is in no acute distress. He has remained calm and cooperative. He has not had any issues tonight. Patient's lab work does show hyponatremia which is chronic in nature. He has been seen for many years for his hyponatremia and I do not feel this is the cause of his acute en cephalopathy. His blood alcohol level is low however he does not have any signs of acute alcohol withdrawal including tachycardia nausea or tremors. Patient is awaiting MRI and psychiatric evaluation in the morning. Urinalysis is also still pending. 09/17/18 04:55 Laboratory 09/16/18 09/16/18 09/17/18 22:48 22:48 00:19 WBC 6.6 RBC 4.26 L Hgb 14.4 Hct 39.7 MCV 93 MCH 33.7 H MCHC 36.2 H RDW 13.4 Plt Count 381 Seg Neutrophils % 54.3 Lymphocytes % 29.5 Monocytes % 10.8 Eosinophils % 4.8 Basophils % 0.6 Absolute Neutrophils 3.6 Absolute Lymphocytes 2.0 Absolute Monocytes 0.7 Absolute Eosinophils 0.3 Absolute Basophils 0.0 Sodium 125.6 L Potassium 4.5 Chloride 88 L Carbon Dioxide 22 Anion Gap 16 BUN 8 Creatinine 0.48 L Est GFR ( Amer) > 60 Est GFR (Non-Af Amer) > 60 Glucose 90 Calcium 10.3 H Total Bilirubin 0.5 Direct Bilirubin 0.2 Neonat Total Bilirubin Not Reportable Neonat Direct Bilirubin Not Reportable Neonat Indirect Bili Not Reportable AST 28 ALT 18 L Alkaline Phosphatase 77 Ammonia < 8.7 L Total Protein 8.0 Albumin 5.4 H Salicylates < 1.0 L Acetaminophen < 10 L Serum Alcohol [address] 09/16/18 21:37 IMPRESSION: Negative for acute intracranial abnormality. TECHNICAL DOCUMENTATION: Quality ID # 436: Final reports with documentation of one or more dose reduction techniques (e.g., Automated exposure control, adjustment of the mA and/or kV according to patient size, use of iterative reconstruction technique) copyright 2011 [employer]- All Rights Reserved
[2018-09-17 09:04] LABS: APPEARANCE,URINE CLOUDY; BILIRUBIN,URINE NEGATIVE (NEGATIVE); COLOR,URINE YELLOW; GLUCOSE, URINE NEGATIVE (NEGATIVE); KETONES,URINE 20 mg/dL (NEGATIVE); LEUKOCYTE ESTERASE,URINE NEGATIVE (NEGATIVE); NITRITE,URINE NEGATIVE (NEGATIVE); PROTEIN,URINE 30 mg/dL (NEGATIVE); URINE SPECIFIC GRAVITY 1.013
--- NOTE | 2018-09-17 09:18 | ER Document Report ---
Doctor's Note Notes: 09/17/18 09:18 Patient seen and evaluated by myself. Patient was brought to the emergency department and shares custody with IVC paperwork filled out. Family found him wandering around the backyard stating that he was seeing bears and snakes. His vital signs are stable. No issues overnight. Patient has no complaints at this time. Urinalysis was obtained. No signs of infection. It was positive for benzodiazepines. MRI is pending. Awaiting behavioral health's plan. 09/17/18 13:08 MRI is negative. Behavioral health evaluated the patient. They feel that he can be discharged home. They feel the patient delusions are related to alcohol. He is awake, alert, oriented x3 at this time. He is not having any delusions. He denies any suicidal or homicidal ideations. 09/17/18 13:[address] Haines, patient's PCP. He feels the encephalopathy is psych related. He would like resources given to the patient for his alcohol abuse and psych referral. He will follow up with the patient outpatient.
[2018-09-17 09:19] LABS: URINE AMPHETAMINES SCREEN NEGATIVE; URINE BARBITURATES SCREEN NEGATIVE; URINE BENZODIAZEPINES SCREEN UNCONFIRMED POSITIVE; URINE COCAINE SCREEN NEGATIVE; URINE MARIJUANA (THC) SCREEN NEGATIVE; URINE METHADONE SCREEN NEGATIVE; URINE PHENCYCLIDINE SCREEN NEGATIVE
--- NOTE | 2018-09-17 10:28 | RADIOLOGY REPORT (SQ) ---
EXAM DESCRIPTION: MRI HEAD WITHOUT COMPLETED DATE/TIME: 09/17/2018 10:05 am REASON FOR STUDY: confusion COMPARISON: None. TECHNIQUE: Multiplanar imaging includes non-contrasted T1, T2, FLAIR, and Diffusion with ADC map seq uences. Images stored on PACS. LIMITATIONS: None. FINDINGS: ANATOMY: No anomalies. Normal vascular flow voids. Pituitary fossa normal. CSF SPACES: Normal in size and contour. No hemorrhage. CEREBRUM: A few high-signal intensity lesions scattered throughout the white matter on FLAIR imaging with distribution suggesting chronic micro-vascular ischemic change. Sulci and gyri normal in size a nd contour. No evidence of hemorrhage, mass or extraaxial fluid collection. POSTERIOR FOSSA: No signal alteration. No hemorrhage. No edema, masses or mass effect. Internal hunter tory canals, cerebello-pontine angles, mastoids normal. DIFFUSION: Negative for acute or sub-acute infarction. ORBITS: No masses. Globes normal. PARANASAL SINUSES: Chronic sinus disease. OTHER: No other significant finding. IMPRESSION: No acute findings. EVIDENCE OF ACUTE STROKE: NO. TECHNICAL DOCUMENTATION: JOB ID: [id number]- All Rights Reserved Reading location - IP/workstation name: [email or web address]
[2018-09-17 13:34] VITALS: BP 138/85
--- NOTE | 2018-09-17 20:28 | EKG REPORT ---
SEVERITY:- OTHERWISE NORMAL ECG - SINUS RHYTHM BORDERLINE LEFT AXIS DEVIATION : Confirmed by: Suman Kirby 17-Sep-2018 20:28:21
== END 2018-09-17 13:34 | disposition home or self-care (01) ==
LOC: ER 21:20
DX: F10.19 Alcohol abuse with unspecified alcohol-induced disorder (principal); E87.1 Hypo-osmolality and hyponatremia; I10 Essential (primary) hypertension; F17.210 Nicotine dependence, cigarettes, uncomplicated
CPT/HCPCS: 93005; 99285; 96372; 96365; 36415; 80307 ×4; 82140; 85025; 80053; 81001; 70551; 70450; 93010; J3490; J1630; J3411; J7050